=== PATIENT | female | born 1940 | race Caucasian/White ===

== ENCOUNTER 2020-01-28 14:32 | Outpatient (CLI) | payer MEDICARE, BC, SELFPAY ==
--- NOTE | ~2020-01-28 | MM_ITS ---
EXAMINATION: MM screening [facility] BI w sofia HISTORY: Screening mammogram TECHNIQUE: Craniocaudal and mediolateral oblique 3-D tomosynthesis images were obtained and synthetic 2-D images were generated. CAD analysis was submitted and interpreted. COMPARISON: 06/27/2018, 06/02/2017, 02/27/2016 bilateral digital screening mammogram examinations BREAST PARENCHYMAL COMPOSITION: There are scattered areas of fibroglandular density................. The triscaphe and FINDINGS: There is no evidence of suspicious mass, calcification, or architectural distortion to sugg est malignancy in either breast. There has been no suspicious interval change. IMPRESSION: 1. No mammographic evidence of malignancy. 2. Recommend routine screening mammography in one year. BI-RADS Category 1: Negative Reviewed, dictated and finalized at location A.
== END 2020-01-28 14:33 | disposition home or self-care (01) ==
PROVIDERS: PCP Family Medicine; Visit Provider Family Medicine
DX: Z12.31 Encounter for screening mammogram for malignant neoplasm of breast (principal)
CPT/HCPCS: 77063; 77067

== ENCOUNTER 2021-04-15 16:35 | Outpatient (CLI) | payer MEDICARE, BC, SELFPAY ==
--- NOTE | ~2021-04-15 | MM_ITS ---
EXAMINATION: MM screening [facility] BI w sofia HISTORY: Screening mammogram TECHNIQUE: Craniocaudal and mediolateral oblique 3-D tomosynthesis images were obtained and synthetic 2-D images were generated. CAD analysis was submitted and interpreted. COMPARISON: 01/28/2020, 06/27/2018, 06/02/2017 BREAST PARENCHYMAL COMPOSITION: There are scattered areas of fibroglandular density. FINDINGS: There is no evidence of suspicious mass, calcification, or architectural distortion to sugg est malignancy in either breast. There has been no suspicious interval change. IMPRESSION: 1. No mammographic evidence of malignancy. 2. Recommend routine screening mammography in one year. BI-RADS Category 1: Negative Reviewed, dictated and finalized at location A. LINE YARDER
== END 2021-04-15 16:36 | disposition home or self-care (01) ==
LOC: ANHIMG 16:37
PROVIDERS: PCP Family Medicine; Visit Provider Family Medicine
DX: Z12.31 Encounter for screening mammogram for malignant neoplasm of breast (principal)
CPT/HCPCS: 77063; 77067

== ENCOUNTER 2022-06-23 09:16 | Outpatient (CLI) | payer MEDICARE, BC, SELFPAY ==
--- NOTE | ~2022-06-23 | MM_ITS ---
EXAMINATION: MM screening [facility] BI w sofia HISTORY: Screening mammogram TECHNIQUE: Craniocaudal and mediolateral oblique 3-D tomosynthesis images were obtained and synthetic 2-D images were generated. CAD analysis was submitted and interpreted. COMPARISON: 04/15/2021, 01/28/2020, 06/27/2018 BREAST PARENCHYMAL COMPOSITION:There are scattered areas of fibroglandular density. FINDINGS: Vascular calcifications are noted bilaterally. No suspicious mass, calcification, or architectural di stortion are identified in either breast to suggest malignancy. There has been no suspicious interval change. IMPRESSION: No mammographic evidence of malignancy. Recommend routine screening mammography in one year. BI-RADS Category 2: Benign finding(s). Reviewed, dictated and finalized at location .
== END 2022-06-23 09:17 | disposition home or self-care (01) ==
PROVIDERS: PCP Family Medicine; Visit Provider Family Medicine
DX: Z12.31 Encounter for screening mammogram for malignant neoplasm of breast (principal)
CPT/HCPCS: 77063; 77067

== ENCOUNTER 2022-08-01 14:37 | Emergency (ER) | payer MEDICARE, BC, SELFPAY ==
--- NOTE | ~2022-08-01 | XR_ITS ---
EXAM: XR knee RT min 4V DATE: 08/01/2022 15:05 HISTORY: MEDIAL SIDE SWELLING. FELT POP 4 DAYS AGO. PAIN . COMPARISON: None available. FINDINGS: Decreased mineralization. No fracture or dislocation. No lytic or blastic lesion. Large [place] in the medial and distal right femur. Moderate tricompartmental osteoarthritis. No erosion or periosteal change. Atherosclerotic vessel calcifications. Small volume joint fluid. IMPRESSION: No acute osseous finding in the right knee. Reviewed, dictated and finalized at location K.
[2022-08-01 14:39] VITALS: BP 143/73; PULSE 95; RESP 14; TEMP 36.7; O2SAT 96
[2022-08-01] MEDS: traMADol HCL (*CRX) 50 MG TABLET PO (15:19)
--- NOTE | 2022-08-01 16:33 | ED.LOWEXIN ---
HPI - Extremity Injury (Lower) General Chief Complaint: Extremity Injury, Lower Stated Complaint: right knee pain Time Seen by Provider: 08/01/22 14:52 History of Present Illness HPI Narrative: Patient is an 82-year-old female who presents ER with right knee pain. Over the night she was standing her leg when she had a pop and sudden onset pain. She had decreased range of motion for the last 2 days but is improved today. She does have pain with bearing weight. She is applied a pressure wrap that does not help much because it continues to slide down her knee. No fevers or chills or sweats. No redness or swelling. She has mild radiation of pain into her tellez. Related Data Home Medications Medication Instructions Recorded Confirmed aspirin 81 mg tablet,delayed 81 mg PO DAILY 03/21/19 07/05/22 release (Adult Low Dose Aspirin) atorvastatin 40 mg tablet 40 mg PO DAILY 03/21/19 07/05/22 cholecalciferol (vitamin D3) 10 400 unit PO DAILY 03/21/19 07/05/22 mcg (400 unit) capsule lisinopril 10 mg tablet 10 mg PO DAILY 03/21/19 07/05/22 carboxymethylcellulose sodium 0.5 2 drop ophthalmic (eye) BID 05/22/19 07/05/22 % eye drops (Refresh Tears) cyclosporine 0.05 % eye drops in a 1 drop ophthalmic (eye) Q12H 05/22/19 07/05/22 dropperette (Restasis) amlodipine 2.5 mg tablet 2.5 mg PO DAILY 07/05/22 07/05/22 Allergies Allergy/AdvReac Type Severity Reaction Status Date / Time ceftriaxone Allergy Unknown Unknown Verified 07/05/22 11:09 Cephalosporins Allergy Unknown Unknown Verified 07/05/22 11:09 Review of Systems Musculoskeletal: Musculoskeletal: Reports arthralgias and Denies joint swelling Neurologic: Denies focal weakness and Denies numbness PMFSH Past Medical History Medical History (Updated 08/01/22 @ 16:37 by Cesar Stern MD) Arthritis Carotid atherosclerosis Essential (primary) hypertension Heart murmur Hypercholesteremia Vitamin D deficiency Surgical History Surgical History H/O adenoidectomy H/O tubal ligation History of arthroplasty of knee History of bladder suspension procedure History of carpal tunnel release History of knee replacement Hx of joint replacement S/P meniscectomy Status post trigger finger release Family History Family History Mother Family history of cardiovascular disease, Onset Age: 73 Family history of malignant neoplasm Family history of arthritis Father Family history of cardiovascular disease, Onset Age: 80 Grandparent Family history of cardiovascular disease, Onset Age: 88 Family history of arthritis, Onset Age: 73 Family history of malignant neoplasm, Onset Age: 62 Sibling Family history of cardiovascular disease Social History Social History Smoking status: Former smoker Tobacco type: cigarettes Second hand tobacco smoke exposure: No Smoking end date: 04/10/99 Alcohol intake: never Substance use: never Substance use type: does not use Lack of Transportation: No Lack of Food: Never True Current Housing: I Have Housing Concerned About Future Housing: No Difficulty Paying Gas/Electric Bills: No Difficulty Paying for Meds: No Currently Unemployed: No Difficulty w/ Childcare or Family Care: No Living arrangements: alone Occupation/Education: occupation Gender identity (if verbalized by the patient): Female Sexual Orientation (if Verbalized by the Patient): Straight or Heterosexual Spiritual care concerns: No Exam Narrative: GENERAL: Well-appearing, well-nourished, and in no acute distress. HEAD: Normocephalic, atraumatic. EYES: PERRL and EOMI. ENT: Mucous membranes moist. CHEST: Clear to auscultation. No respiratory distress. HEART: Regular rate and rhythm. Normal peripheral pulses. EXTREMITIES: Normal range of juju
== END 2022-08-01 16:50 | disposition home or self-care (01) ==
PROVIDERS: Emergency Provider Emergency Medicine; PCP Family Medicine; Referring Provider Orthopaedic Surgery
DX: M25.561 Pain in right knee (principal); M19.90 Unspecified osteoarthritis, unspecified site; I10 Essential (primary) hypertension
CPT/HCPCS: 73564; 99283; A9270

== ENCOUNTER 2022-09-30 10:20 | Outpatient (CLI) | payer MEDICARE, BC, SELFPAY ==
--- NOTE | 2022-09-30 10:45 | ECG_ITS ---
Measurements Intervals [place] Rate: 61 P: 77 MA: 153 QRS: 30 QRSD: 90 T: 23 QT: 443 QTc: 449 Interpretive Statements SINUS RHYTHM POSSIBLE LEFT ATRIAL ENLARGEMENT [-0.1mV P WAVE IN V1/V2] BORDERLINE ECG NO PREVIOUS ECG AVAILABLE FOR COMPARISON Electronically Signed On 09-30-2022 16:13:08 CDT by Judson Ramos M.D.
[2022-09-30 10:53] LABS: Hematocrit 41.9 % (37.0-47.0); Hemoglobin 13.2 g/dL (12.0-15.0)
[2022-09-30 11:05] LABS: Urine Cotinine NEGATIVE
[2022-09-30 11:07] LABS: Albumin Level 4.5 g/dL (3.5-5.1); Estimated Glomerular Filt Rate > 60; Glucose 83 mg/dL (65-110)
== END 2022-09-30 10:21 | disposition home or self-care (01) ==
PROVIDERS: PCP Family Medicine; Visit Provider Orthopaedic Surgery
DX: M17.11 Unilateral primary osteoarthritis, right knee (principal); E78.00 Pure hypercholesterolemia, unspecified; E78.5 Hyperlipidemia, unspecified; I10 Essential (primary) hypertension; I65.29 Occlusion and stenosis of unspecified carotid artery; R01.1 Cardiac murmur, unspecified; Z79.899 Other long term (current) drug therapy
CPT/HCPCS: 80307; 82040; 82565; 82947; 85014; 85018; 93005

== ENCOUNTER 2022-11-09 13:36 | Outpatient (CLI) | payer MEDICARE, BC, SELFPAY ==
[2022-11-09 15:06] LABS: Basophils Percent Auto 0.3 % (0.2-1.2); Eosinophils Percent Auto 0.5 % (0-4.4); Hematocrit 40.9 % (37.0-47.0); Hemoglobin 13.2 g/dL (12.0-15.0); Immature Granulocyte Absolute 0.01 K/mm3 (0.00-0.031); Immature Granulocyte Percent A 0.2 % (0-0.5); Lymphocytes Absolute Auto 1.29 K/mm3 (0.9-3.2); Lymphocytes Percent Auto 20.5 % (18.3-44.2); Mean Corpuscular HGB Conc 32.3 g/dl (32-36); Mean Corpuscular Hemoglobin 31.6 pg (26-34); Mean Corpuscular Volume 97.8 fl (80-100); Mean Platelet Volume 9.7 fl (7.4-10.4); Monocytes Absolute Auto 0.6 K/mm3 (0.1-0.6); Monocytes Percent Auto 8.7 % (2.6-8.5); Neutrophils Absolute Auto 4.4 K/mm3 (1.3-6.7); Neutrophils Percent Auto 69.8 % (45.5-73.1); Platelet Count Result 162 k/mm3 (150-375); Red Blood Count 4.18 M/mm3 (4.2-5.4); White Blood Count 6.3 K/mm3 (4.5-10.0)
[2022-11-09 15:22] LABS: Albumin Level 4.2 g/dL (3.5-5.1); Estimated Glomerular Filt Rate > 60; Glucose 93 mg/dL (65-110)
[2022-11-09 16:00] LABS: Urine Cotinine NEGATIVE
[2022-11-09 16:23] LABS: Hemoglobin A1C 5.5 % (<5.7)
== END 2022-11-09 13:37 | disposition home or self-care (01) ==
LOC: ANHSURGERY 13:42
PROVIDERS: PCP Family Medicine; Visit Provider Orthopaedic Surgery
DX: Z01.818 Encounter for other preprocedural examination (principal); M17.11 Unilateral primary osteoarthritis, right knee
CPT/HCPCS: 80307; 82040; 82565; 82947; 83036; 85025; 87081

== ENCOUNTER 2022-12-07 15:05 | Observation (INO) | payer MEDICARE, BC, SELFPAY ==
--- NOTE | 2022-11-09 13:30 | PC.NURSE ---
PRE-OP INSTRUCTIONS, PLEASE READ CAREFULLY Report to the Outpatient Waiting Room, entrance under the green pavilion located off [facility], at time _0830_ on date _12/06/22_. Planned Procedure Time: _1030_. PACK A SMALL OVERNIGHT BAG AND LEAVE IN THE CAR ALONG WITH YOUR WALKER Time changes happen often and if your time is changed the preop area will call you the afternoon before. - You and your visitor will be asked to self-screen and do not enter if you have any COVID symptoms. - A mask is optional within the hospital at this time. -VISITING HOURS 8AM-8PM Patients may have clear liquids (water, carbonated beverages, clear teas, apple juice) until 3 hours prior to surgery (0730 AM) with a maximum of 20 ounces. - No food from midnight until time of surgery Take the following medications with a SIP of water the morning of surgery: _AMLODIPINE, & TYLENOL IF NEEDED_ DO NOT STOP ANY OF YOUR OTHER PRESCRIPTION MEDICATIONS PRIOR TO SURGERY ?EXCEPT THE FOLLOWING Medications to discontinue per DR. OCAMPO - _MELOXICAM, IBUPROFEN 7 DAYS PRIOR TO SURGERY, Date to take last dose 11/28/22_ Please no make-up, nail [place], hairspray, perfume, deodorant, or body powder the day of surgery. No jewelry (including any body piercings) or valuables the day of surgery, leave them at home. Please take a shower or bath the night before, or the morning of, surgery with an antibacterial soap. Wear comfortable, loose fitting clothing. - Jewelry must be removed prior to entering the operating room. Rings and piercings that are not removed may be cut off. - The hospital will not accept responsibility for valuables. - Please leave all valuables, including medications, at home the day of surgery. If you are going home after surgery, a licensed pile driver must drive you home. - NO public transportation without another adult if you receive anesthesia. - We recommend that an adult stay with you for 24 hours following discharge. - We also recommend that you do not drive, make important decision, drink alcoholic beverages, or take any drugs that were not prescribed by your health care provider for at least 24 hours after your discharge time. Follow any additional instructions given to you from your surgeon. If you or anyone in your household have experienced Covid symptoms in the past week, please notify your surgeon or the nurse liaison at the phone number below for possible testing. Instructions given to _PATIENT_and asked if any additional questions and then verbalized understanding. Patient advised to call surgeon office or pre surgery nurse liaison [phone] if any additional questions.
[2022-11-09 14:07] VITALS: BP 146/66; PULSE 70; RESP 18; TEMP 36.7; O2SAT 99; BMI 25.7
[2022-12-06] VITALS (11 sets, daily range): BP systolic 123–155; BP diastolic 55–75; PULSE 65–91; RESP 14–21; TEMP 35.9–36.6; O2SAT 95–100; BMI 24.9
--- NOTE | 2022-12-06 07:13 | WPDHPUPDATE1 ---
History and Physical Update Update Date/Time: 12/06/22 07:13 History and Physical has been reviewed, including an updated exam of the patient. There are NO changes in the patient's condition. Risks, benefits, and alternatives have been discussed and questions answered. Patient agrees to proceed with procedure.
[2022-12-06] MEDS: LACTATED RINGERS 1,000 ML 30 ML IV CONT (12:15)
[2022-12-06] MEDS: ACETAMINOPHEN 500 MG TABLET 1000 MG PO ×2 (12:25→18:45)
--- NOTE | 2022-12-06 13:04 | WPDANESEPPF ---
Anes - Initial Pre Proc Eval Procedure: Operation Date: 12/06/22 13:30 Proposed Procedures p Right Total Knee Arthroplasty - Chris Rueda MD Date/Time: 12/06/22 13:04 Surgeon: Chris Rueda MD Pre Op Diagnosis: Prim O A Rt Knee Patient Data Age: 82 Gender: F Height: 1.63 m Weight: 65.9 kg Last Vital Signs Temp 36.7 C 11/09/22 14:07 Pulse 70 11/09/22 14:07 Resp 18 11/09/22 14:07 BP 146/66 H 11/09/22 14:07 Pulse Ox 99 11/09/22 14:07 O2 Del Method Room Air 11/09/22 14:07 Allergies Allergy/AdvReac Type Severity Reaction Status Date / Time ceftriaxone Allergy Unknown HIVES/ITCHING/FLUSHED Verified 12/06/22 12:23 FEELING Cephalosporins Allergy Unknown HIVES/ITCHING/FLUSHED Verified 12/06/22 12:23 FEELING Home Medications Medication Instructions Recorded Confirmed Type atorvastatin 40 mg tablet 40 mg PO DAILY 03/21/19 11/25/22 History lisinopril 10 mg tablet 10 mg PO DAILY 03/21/19 11/25/22 History amlodipine 2.5 mg tablet 2.5 mg PO DAILY 07/05/22 12/06/22 History meloxicam 15 mg tablet 15 mg PO DAILY #90 tabs 08/29/22 12/06/22 Rx acetaminophen 500 mg tablet 1,000 mg PO QID PRN Pain 11/09/22 11/25/22 History ibuprofen 400 mg tablet 400 mg PO Q6H PRN Pain 11/09/22 12/06/22 History Laboratory Tests 12/06/22 12:18 Blood Type A Positive Antibody Screen Pending Patient hx anesthesia problems: none Family hx anesthesia problems: none Results Review: All pre-operative results and documents have been reviewed as part of the pre-operative evaluation. [facility] Past Medical History Medical History Arthritis Carotid atherosclerosis Essential (primary) hypertension Heart murmur History of bruising easily History of diverticulosis Hypercholesteremia Hyperlipidemia Vitamin D deficiency Surgical History Surgical History H/O adenoidectomy (~195) H/O tubal ligation (~1974) History of arthroplasty of knee History of bilateral cataract extraction (~2017) History of bladder suspension procedure (~2003) History of carpal tunnel release Left 2007 Right 2010 History of dental surgery History of knee replacement (~2017) Left History of partial knee replacement (~2015) History of removal of retained hardware (~2016) Implant removal due to infection Hx of joint replacement (~2011) Right Great Toe S/P meniscectomy (~2015) Medial Meniscectomy Status post trigger finger release (~2015) Left Middle Family History Family History Mother Family history of cardiovascular disease, Onset Age: 73 Family history of malignant neoplasm Family history of arthritis Father Family history of cardiovascular disease, Onset Age: 80 Grandparent Family history of cardiovascular disease, Onset Age: 88 Family history of arthritis, Onset Age: 73 Family history of malignant neoplasm, Onset Age: 62 Sibling Family history of cardiovascular disease Social History Social History Years smoked: 15 Smoking status: Former smoker Tobacco type: cigarettes Second hand tobacco smoke exposure: No Smoking end date: 04/10/99 Additional smoking assessment comments: STATES SMOKED 1-2PKS/DAY-PENDING THE DAY - DENIES ALL FORMS OF TOBACCO USE Alcohol intake: never Substance use: never Substance use type: does not use Lack of Transportation: No Lack of Food: Never True Current Housing: I Have Housing Concerned About Future Housing: No Difficulty Paying Gas/Electric Bills: No Difficulty Paying for Meds: No Currently Unemployed: No Education: High School Diploma/GED Difficulty w/ Childcare or Family Care: No Living arrangements: alone Occupation/Education: occupation [employer]
--- NOTE | 2022-12-06 13:08 | WPDANESPNB ---
Anes - Peripheral Nerve Block Date/Time: 12/06/22 13:08 I have discussed with the patient/family/POA the placement of a peripheral nerve block for post-operative pain management, including associated risks, benefits, complications, and side effects. Alternative methods of post-operative analgesia were detailed. Questions were solicited and answers provided to the satisfaction of the patient/family/POA. Time-Out: A pre-procedural Time-Out was completed immediately before starting the procedure and confirmed: Patient Identification, Site, Procedure, Patient Position and the Availability of Requisite Equipment. Clinical Indications: Acute post-operative pain management requested by the operative surgeon. Nerve Block Insertion Note Anes-nerve block: adductor canal right Patient position: supine Skin prep: chlorhexidine Needle: 22 gauge, stimulating, insulated echogenic needle. Needle length: 80 mm Technique: ultrasound Injectate: bupivacaine 0.5% with epi 5 mcg/ml (30cc - no epi) Observations: tolerated well Complications: none Procedure start time:: 1403 Procedure end time:: 1407
--- NOTE | 2022-12-06 13:20 | SUR.PREOP ---
1320- Notified patient and daughter Silvana that procedure start time is delayed. Patient and daughter verbalized understanding of delay to start time and denying needs at this time.
[2022-12-06] MEDS: TRANEXAMIC ACID 1,000MG/ISO100 1,000 MG/100 ML BAG 200 MG IVPB (14:02)
[2022-12-06] MEDS: CLINDAMYCIN 900 MG/D5W 50 ML 900 MG/50 ML PIGGYBACK 50 MG IVPB (14:47)
--- NOTE | 2022-12-06 17:14 | P.OP_ITS ---
Procedure Note - Detailed Date of Procedure 12/06/22 Pre-op Diagnosis Prim O A Rt Knee Post-op Diagnosis Same Procedure Performed Total knee arthroplasty, right. Surgeon Chris Rueda MD Anesthesia General and Regional (subsartorial block) Findings Good bone quality. No releases needed. PCL intact. Description of Procedure The patient was brought to the operating room. A general anesthetic was administered. The leg was prepped and draped in the usual sterile fashion. The limb was elevated and the tourniquet inflated to 300 mmHg during initial exposure, and cementation. A longitudinal incision was created along the medial border of the patella and patellar tendon, and a trivector approach to the knee was performed. No medial release was taken. The knee was then flexed. The osteophytes were carefully removed. The intramedullary guide was placed in the femoral canal. The distal femoral resection was then taken with the oscillating saw. The collateral ligaments were carefully protected. The tibia was carefully exposed. The jig was applied, and the proximal tibia was resected according to preoperative plan. The knee was balanced in extension. Appropriate releases were taken where needed. The anterior cruciate ligament and meniscal remnants were removed. The posterior cruciate ligament was preserved. The patella was measured. Patellar resection was carried out with the oscillating saw. The lug holes drilled. The femur was sized and rotation assessed using a combination of gap balancing, posterior referencing, and the AP axis. The 4 in 1 cutting block was used to finish the femoral cuts after equal gaps were assured. The osteophytes were carefully removed from the back of the knee. The knee was copiously irrigated with antibiotic solution periodically throughout the procedure. The meniscal remnants were removed. The spacer block was used to confirm equal flexion and extension gaps. No further releases were needed. The tibia was sized and broached. The bony surfaces were prepared for cementing with pulsatile lavage. The real tibial and femoral and patellar components were cemented into position. Excess cement was carefully removed. Patellar tracking was carefully assessed. No additional releases were required. Dilute sterile Betadine soak performed for three minutes. Copious irrigation then performed. The wound was closed with #1 Vicryl suture, #2, 2-0, and 3-0 barbed suture, followed by Steri-Strips. A sterile bulky dressing was applied. Meticulous hemostasis was maintained throughout the procedure. The bipolar cautery device was used. The pain relieving mixture was injected into the periarticular tissues during the procedure. There were no complications. The patient was extubated and brought to the recovery room in stable condition after the application of sterile dressing with Jamil bandage. Implants [place] Triathlon knee system, low profile cemented tibia size 4, cemented cruciate retaining femoral component size 4 ,and an 9 mm cruciate retaining polyethylene insert. 32mm asymmetric all polyethylene patella component. Estimated Blood Loss 50 Drains No Pathology None sent Complications No immediate complications Condition Stable Disposition PACU [facility] Billing Surgery - Charge Forward: Surgery Billing
--- NOTE | 2022-12-06 18:30 | ADMGEN ---
This patient, Linsey Whitney, was admitted to [facility] Surg Room 317-01. Patient/family oriented to hospital policies and general routines including ID bracelet, bed and alarms, visiting hours, pain management, procedures, bathroom and other care routines, personal items, smoking policy, room service/diet, and visiting hours. Information on how to activate the Rapid Response Team has been discussed. Patient/Family are encouraged to report perceived risks to care and to ask questions if they do not understand what they are told or what they should do.
[2022-12-06] MEDS: SENNA/DOCUSATE SODIUM TABLET 2 TAB PO (18:45)
[2022-12-06] MEDS: ASPIRIN 81 MG ENTERIC TABLET PO (18:45)
--- NOTE | 2022-12-06 19:03 | PC.NURSE ---
This nurse has reviewed the charting of the orienting license pending nurse and agree with the findings
[2022-12-06] MEDS: FAMOTIDINE 20 MG TABLET PO (20:35)
--- NOTE | ~2022-12-07 | XR_ITS ---
EXAM: [id number]_CR DATE: 12/06/2022 17:15 HISTORY: RT TOTAL KNEE . COMPARISON: None available. FINDINGS/IMPRESSION: Expected postsurgical changes, status post right total knee arthroplasty, with n o radiographic evidence of procedure or hardware related complication. Reviewed, dictated and finalized at location K.
[2022-12-07 00:02] VITALS: BP 132/59; PULSE 61; RESP 18; TEMP 35.9; O2SAT 95
[2022-12-07] MEDS: ACETAMINOPHEN 500 MG TABLET 1000 MG PO ×4 (01:06→17:59)
[2022-12-07] MEDS: VANCOMYCIN 1,000 MG/NS 250 ML 1,000 MG/250 ML BAG 250 MG IVPB ×2 (03:12→15:12)
[2022-12-07 04:02] VITALS: BP 124/57; PULSE 67; RESP 18; TEMP 36.1; O2SAT 97
[2022-12-07 06:58] LABS: Basophils Percent Auto 0.2 % (0.2-1.2); Hematocrit 37.4 % (37.0-47.0); Hemoglobin 12.2 g/dL (12.0-15.0); Immature Granulocyte Absolute 0.04 K/mm3 (0.00-0.031); Immature Granulocyte Percent A 0.4 % (0-0.5); Immature Platelet Fraction Pct 3.4 % (0.9-11.2); Lymphocytes Absolute Auto 1.16 K/mm3 (0.9-3.2); Lymphocytes Percent Auto 12.6 % (18.3-44.2); Mean Corpuscular HGB Conc 32.6 g/dl (32-36); Mean Corpuscular Hemoglobin 31.7 pg (26-34); Mean Corpuscular Volume 97.1 fl (80-100); Mean Platelet Volume 10.4 fl (7.4-10.4); Monocytes Absolute Auto 0.7 K/mm3 (0.1-0.6); Monocytes Percent Auto 7.8 % (2.6-8.5); Neutrophils Absolute Auto 7.3 K/mm3 (1.3-6.7); Platelet Count Result 136 k/mm3 (150-375); Red Blood Count 3.85 M/mm3 (4.2-5.4); Red Cell Distribution Width 12.6 % (11.5-14.5); White Blood Count 9.2 K/mm3 (4.5-10.0)
[2022-12-07 07:10] LABS: Anion Gap 3 mmol/L (8-16); Blood Urea Nitrogen 17 mg/dL (7-17); Calcium 9.2 mg/dL (8.4-10.2); Carbon Dioxide 28 mmol/L (22-30); Chloride 107 mmol/L (98-107); Estimated CRCL calculation 46 ml/min; Estimated Glomerular Filt Rate > 60; Glucose 90 mg/dL (65-110); Potassium 4.3 mmol/L (3.4-5.0); Sodium 138 mmol/L (137-145)
[2022-12-07 07:56] VITALS: BP 119/60; PULSE 69; RESP 18; TEMP 36.2; O2SAT 98
[2022-12-07] MEDS: polyethylene glycoL 3350 17 GM POWD.PACK PO (08:10)
[2022-12-07] MEDS: ATORVASTATIN 40 MG TABLET PO (08:11)
[2022-12-07] MEDS: predniSONE 5 MG TABLET PO (08:11)
[2022-12-07] MEDS: ASPIRIN 81 MG ENTERIC TABLET PO ×2 (08:11→17:59)
[2022-12-07] MEDS: MELOXICAM 7.5 MG TABLET 15 MG PO (08:11)
[2022-12-07] MEDS: FAMOTIDINE 20 MG TABLET PO ×2 (08:11→20:01)
[2022-12-07] MEDS: amLODIPine BESYLATE 2.5 MG TABLET PO (08:11)
[2022-12-07] MEDS: SENNA/DOCUSATE SODIUM TABLET 2 TAB PO ×2 (08:11→17:59)
[2022-12-07] MEDS: lisinopriL 10 MG TABLET PO (08:11)
[2022-12-07] MEDS: traMADol HCL (*CRX) 50 MG TABLET PO ×2 (08:14→23:45)
--- NOTE | 2022-12-07 09:27 | PM.DS ---
DS: Admitting Diagnosis Discharge Date 12/07/22 Admitting Diagnosis OA knee Right DS: Discharge Diagnosis Discharge Diagnosis (1) Status post total right knee replacement: Code(s): Z96.651 - Presence of right artificial knee joint Status: Acute Assessment and Plan: Postop day 1: Right total knee arthroplasty. Patient tolerated procedure well. No complications. Pain manageable with pain medication. No numbness or tingling. We had a lengthy discussion regarding postoperative wound care, limitations, expectations, and exercises. Patient shows good understanding. She has had initial physical therapy and is tolerating it well. DVT prophylaxis: 81 mg baby aspirin b.i.d. for 14 days. Pain medication: Percocet. Meloxicam. Prednisone. Patient has followup appointment with Dr. Rueda in 3 weeks. DS: Summary Hospital Course Reason for hospitalization: Total knee arthroplasty Hospital Course: Patient tolerated procedure well. Has had initial PT/OT. No complications. Pain well managed. Status at Discharge Functional status at discharge: uses cane/walker Overall status at discharge: patient is progressing back to baseline Time Spent with Patient Time attestation: Total time spent providing and/or coordinating discharge services: Exam Narrative: Normal weight 82 y/o female. Resting comfortably in bed. No acute distress. A&O x3. Wearing compression socks bilaterally. Dressing intact with no drainage. Moderate swelling. Small area of ecchymosis. No erythema. No hematoma. Good early range of motion. Calf nontender. Neurologic status intact. No varicosities. Distal pulses palpable. DS: Data Data Completed and Pending Labs on day of discharge: Labs from last 24 hours 12/07/22 12/06/22 06:38 12:18 WBC 9.2 RBC 3.85 L Hgb 12.2 Hct 37.4 MCV 97.1 MCH 31.7 MCHC 32.6 RDW 12.6 Plt Count 136 L MPV 10.4 Immature Gran % (Auto) 0.4 Neut % (Auto) 79.0 H Lymph % (Auto) 12.6 L [place] % (Auto) 7.8 Eos % (Auto) 0.0 Baso % (Auto) 0.2 Lymph # (Auto) 1.16 [place] # (Auto) 0.7 H Eos # (Auto) 0.0 Baso # (Auto) 0.0 Abs Immat Gran (auto) 0.04 H Absolute Neuts (auto) 7.3 H Absolute Nucleated RBC 0.0 Nucleated RBC % 0.0 % Immature Plt Fraction 3.4 Sodium 138 Potassium 4.3 Chloride 107 Carbon Dioxide 28 Anion Gap 3 L BUN 17 Creatinine 0.70 Estim Creat Clear Calc 46 Estimated GFR > 60 Glucose 90 Calcium 9.2 Blood Type A Positive Antibody Screen Negative Discharge Plan Discharge Patient Disposition: Home, Self-Care Discharge Instructions: See green instruction sheets Stand Alone Forms: General Discharge Instructions Follow-up/Referrals: Fabby Lee PA [Physician Priest] - Discharge Medications: New prednisone 5 mg tablet 5 mg PO DAILY 21 Days Qty: 21 0RF aspirin 81 mg tablet,delayed release (DR/EC) 81 mg PO BID 14 Days Qty: 28 0RF oxycodone-acetaminophen 5-325 mg tablet 1 - 2 tablet PO Q4-6H MDD 6 PRN (Reason: pain) Qty: 30 0RF meloxicam 15 mg tablet 15 mg PO DAILY Qty: 30 0RF Rx Instructions: Cut in half. Take 1/2 in morning and 1/2 at night. Take with food. Stop if stomach upset. Continued amlodipine 2.5 mg tablet 2.5 mg PO DAILY acetaminophen 500 mg Tablet 1,000 mg PO QID PRN (Reason: Pain) ibuprofen 400 mg Tablet 400 mg PO Q6H PRN (Reason: Pain) atorvastatin 40 mg tablet 40 mg PO DAILY lisinopril 10 mg tablet 10 mg PO DAILY meloxicam 15 mg tablet 15 mg PO DAILY Qty: 90 0RF
--- NOTE | 2022-12-07 10:20 | WPDANESPN ---
Anes - Prog Note Post-Op Date/Time: 12/07/22 10:20 Cardiovascular status: normal Respiratory status: normal Airway patency: baseline Mental status: baseline Post-Op hydration status: normal Vital Signs: Last Vital Signs Temp 36.2 C L 12/07/22 07:56 Pulse 69 12/07/22 07:56 Resp 18 12/07/22 07:56 BP 119/60 12/07/22 07:56 Pulse Ox 98 12/07/22 07:56 O2 Del Method Room Air 12/06/22 20:20 O2 Flow Rate 8 12/06/22 17:09 Pain Score (VAS): 0 I/O: Intake & Output 12/06/22 12/07/22 12/07/22 23:59 07:59 15:59 Intake Total 1000 360 Balance 1000 360 Laboratory Tests 12/07/22 06:38 12/07/22 06:38 12/06/22 12/07/22 12:18 06:38 WBC 9.2 RBC 3.85 L Hgb 12.2 Hct 37.4 MCV 97.1 MCH 31.7 MCHC 32.6 RDW 12.6 Plt Count 136 L MPV 10.4 Immature Gran % (Auto) 0.4 Neut % (Auto) 79.0 H Lymph % (Auto) 12.6 L [place] % (Auto) 7.8 Eos % (Auto) 0.0 Baso % (Auto) 0.2 Lymph # (Auto) 1.16 [place] # (Auto) 0.7 H Eos # (Auto) 0.0 Baso # (Auto) 0.0 Abs Immat Gran (auto) 0.04 H Absolute Neuts (auto) 7.3 H Absolute Nucleated RBC 0.0 Nucleated RBC % 0.0 % Immature Plt Fraction 3.4 Sodium 138 Potassium 4.3 Chloride 107 Carbon Dioxide 28 Anion Gap 3 L BUN 17 Creatinine 0.70 Estim Creat Clear Calc 46 Estimated GFR > 60 Glucose 90 Calcium 9.2 Blood Type A Positive Antibody Screen Negative Post-procedural complaints: none Patient Feedback: Patient satisfied with anesthetic care.
[2022-12-07 12:15] VITALS: BP 123/72; PULSE 71; RESP 17; TEMP 36.3; O2SAT 100
--- NOTE | 2022-12-07 15:20 | PM.PNORT ---
Progress Note: A&P Assessment and Plan (1) Status post total right knee replacement: Code(s): Z96.651 - Presence of right artificial knee joint Status: Acute Assessment and Plan: Spoke with Yao from PT. Patient is very impulsive and has poor quad function. Physical therapy would like to see the patient one more time tomorrow for the patient's safety. That is reasonable. Plan on discharge tomorrow. Subjective Subjective Date/Time Seen: 12/07/22 15:20 Interval history: Patient states she has no pain. She has been struggling with formal physical therapy. She is very impulsive and has poor quad function. Review of Systems Review of Systems: All systems reviewed & are unremarkable except as noted in HPI and below Exam Narrative: Normal weight 82 y/o female. Resting comfortably in bed. No acute distress. A&O x3. Wearing compression socks bilaterally. Dressing intact with no drainage.? Moderate swelling.? Small area of ecchymosis. No erythema. No hematoma. Good early range of motion. Calf nontender.? Neurologic status intact. No varicosities. Distal pulses palpable. Objective Data Vital Signs Vital Signs: Vital Signs - 24 hr 12/06/22 17:09 12/06/22 17:25 12/06/22 17:40 Temperature 97.8 F Pulse Rate 91 76 72 Respiratory Rate 21 H 16 16 Blood Pressure 155/69 H 154/75 H 134/61 Pulse Oximetry 100 98 98 Oxygen Delivery Simple Face Mask Room Air Room Air Oxygen Flow Rate 8 12/06/22 17:56 12/06/22 18:10 12/06/22 18:30 Temperature 97.5 F L Pulse Rate 73 76 75 Respiratory Rate 16 18 14 Blood Pressure 142/74 H 139/71 139/70 Pulse Oximetry 97 98 96 Oxygen Delivery Room Air Room Air Oxygen Flow Rate 12/06/22 18:45 12/06/22 20:20 12/06/22 19:02 Temperature 97.3 F L 97.7 F Pulse Rate 68 68 72 Respiratory Rate 14 14 16 Blood Pressure 148/70 H 123/55 L Pulse Oximetry 97 97 95 Oxygen Delivery Room Air Oxygen Flow Rate 12/06/22 20:02 12/07/22 00:02 12/07/22 04:02 Temperature 96.7 F L 96.7 F L 96.9 F L Pulse Rate 73 61 67 Respiratory Rate 18 18 18 Blood Pressure 126/62 132/59 L 124/57 L Pulse Oximetry 95 95 97 Oxygen Delivery Oxygen Flow Rate 12/07/22 07:56 12/07/22 10:20 12/07/22 12:15 Temperature 97.1 F L 97.3 F L Pulse Rate 69 71 Respiratory Rate 18 17 Blood Pressure 119/60 123/72 Pulse Oximetry 98 100 Oxygen Delivery Room Air Oxygen Flow Rate Intake/Output Intake/Output: Intake & Output 12/04/22 12/05/22 12/06/22 12/07/22 23:59 23:59 23:59 23:59 Intake Total 1050 850 Balance 1050 850 Meds/Results Medications: Active Medications Generic Name Dose Route Start Last Admin Trade Name Freq PRN Reason Stop Dose Admin Acetaminophen 1,000 mg 12/06/22 19:00 12/07/22 12:01 Acetaminophen 500 Mg Tablet PO 1,000 mg Q6H RONNI Administration Amlodipine Besylate 2.5 mg 12/07/22 09:00 12/07/22 08:11 Amlodipine Besylate 2.5 Mg Tablet PO 2.5 mg DAILY RONNI Administration Aspirin 81 mg 12/06/22 18:17 12/07/22 08:11 Aspirin 81 Mg Enteric Tablet PO 81 mg BID RONNI Administration Atorvastatin Calcium 40 mg 12/07/22 09:00 12/07/22 08:11 Atorvastatin 40 Mg Tablet PO 40 mg DAILY RONNI Administration Cyclobenzaprine HCl 10 mg 12/06/22 18:17 Cyclobenzaprine Hcl 10 Mg Tablet PO Q8H PRN Spasms Diphenhydramine HCl 25 mg 12/06/22 18:17 Diphenhydramine Hcl Inj 50 Mg/Ml Vial IV PUSH Q6H PRN Itching Famotidine 20 mg 12/06/22 21:00 12/07/22 08:11 Famotidine 20 Mg Tablet PO 20 mg Q12HR RONNI Administration Vancomycin HCl 1,000 mg in 250 mls @ 250 mls/hr 12/07/22 03:00 12/07/22 15:12 Vancomycin 1,000 Mg/Ns 250 Ml IVPB 12/07/22 15:59 250 mls/hr Q12H RONNI Administration Lisinopril 10 mg 12/07/22 09:00 12/07/22 08:11 Lisinopril 10 Mg Tablet PO 10 mg DAILY RONNI Administration Meloxicam 15 mg 08/30/23 09:00 12/07/22 08:11 Meloxicam 7.5 Mg Tablet
[2022-12-07 15:48] VITALS: BP 110/58; PULSE 70; RESP 17; TEMP 36.8; O2SAT 95
[2022-12-07 20:01] VITALS: BP 130/72; PULSE 78; RESP 18; TEMP 36.7; O2SAT 96
[2022-12-07] MEDS: CYCLOBENZAPRINE HCL 10 MG TABLET PO (20:03)
[2022-12-08] MEDS: ONDANSETRON INJ 4 MG/2 ML VIAL IV PUSH (00:36)
[2022-12-08] MEDS: oxyCODONE HCL (*CRX) 5 MG TAB IR 10 MG PO (00:37)
[2022-12-08 04:43] VITALS: BP 144/74; PULSE 80; RESP 16; TEMP 36.6; O2SAT 93
[2022-12-08] MEDS: oxyCODONE HCL (*CRX) 5 MG TAB IR PO (06:02)
[2022-12-08] MEDS: FAMOTIDINE 20 MG TABLET PO (08:48)
[2022-12-08] MEDS: ACETAMINOPHEN 500 MG TABLET 1000 MG PO (08:48)
[2022-12-08] MEDS: SENNA/DOCUSATE SODIUM TABLET 2 TAB PO (08:48)
[2022-12-08] MEDS: predniSONE 5 MG TABLET PO (08:48)
[2022-12-08] MEDS: MELOXICAM 7.5 MG TABLET 15 MG PO (08:48)
[2022-12-08] MEDS: amLODIPine BESYLATE 2.5 MG TABLET PO (08:48)
[2022-12-08] MEDS: lisinopriL 10 MG TABLET PO (08:48)
[2022-12-08] MEDS: ASPIRIN 81 MG ENTERIC TABLET PO (08:49)
[2022-12-08] MEDS: polyethylene glycoL 3350 17 GM POWD.PACK PO (08:49)
[2022-12-08] MEDS: ATORVASTATIN 40 MG TABLET PO (08:54)
--- NOTE | 2022-12-08 10:55 | P.DS_ITS ---
DS: Admitting Diagnosis Discharge Date 12/08/22 Admitting Diagnosis Knee arthritis. DS: Discharge Diagnosis Discharge Diagnosis (1) Status post total right knee replacement: Code(s): Z96.651 - Presence of right artificial knee joint Status: Acute Assessment and Plan: Postop day 2: Left total Hip arthroplasty. Patient tolerated procedure well. No complications. Patient had poor quad function yesterday with formal physical therapy and was very impulsive. It was decided that patient was not safe to return home yesterday. Her block has warn off and she is doing much better with formal physical therapy. Okay for discharge at this time. Pain manageable with pain medication. No numbness or tingling. We had a lengthy discussion regarding postoperative wound care, limitations, expectations, and exercises. Patient shows good understanding. Patient has followup appointment with Dr. Rueda in 3 weeks. DS: Summary Hospital Course Hospital Course: Patient had total knee arthroplasty. No immediate complications. Found to be unsafe to return home yesterday with formal physical therapy. She is doing much better today and is okay for discharge. Time Spent with Patient Time attestation: Total time spent providing and/or coordinating discharge services: Exam Narrative: Normal weight 82 y/o female. Resting comfortably in bed. No acute distress. A&O x3. Wearing compression socks bilaterally. Dressing intact with no drainage.? Moderate swelling.? Small area of ecchymosis. No erythema. No hematoma. Good early range of motion. Calf nontender.? Neurologic status intact. No varicosities. Distal pulses palpable. Discharge Plan Discharge Attending physician on discharge: Chris Rueda Discharging Clinician: Fabby Lee Anticipated Discharge Date/Time: 12/08/22 10:54 Patient Disposition: Home, Self-Care Activity: may shower Diet: as tolerated Wound Care Instructions: follow printed instructions Discharge Instructions: See green instruction sheets Stand Alone Forms: General Discharge Instructions Follow-up/Referrals: Fabby Lee PA [Physician [employer]] - Discharge Medications: New prednisone 5 mg tablet 5 mg PO DAILY 21 Days Qty: 21 0RF aspirin 81 mg tablet,delayed release (DR/EC) 81 mg PO BID 14 Days Qty: 28 0RF oxycodone-acetaminophen 5-325 mg tablet 1 - 2 tablet PO Q4-6H MDD 6 PRN (Reason: pain) Qty: 30 0RF meloxicam 15 mg tablet 15 mg PO DAILY Qty: 30 0RF Rx Instructions: Cut in half. Take 1/2 in morning and 1/2 at night. Take with food. Stop if stomach upset. Continued amlodipine 2.5 mg tablet 2.5 mg PO DAILY acetaminophen 500 mg Tablet 1,000 mg PO QID PRN (Reason: Pain) ibuprofen 400 mg Tablet 400 mg PO Q6H PRN (Reason: Pain) atorvastatin 40 mg tablet 40 mg PO DAILY lisinopril 10 mg tablet 10 mg PO DAILY meloxicam 15 mg tablet 15 mg PO DAILY Qty: 90 0RF Date of admission: 12/07/22 15:05 Primary Care Provider: Juan A Ralph Admitting Provider: Chris Rueda Attending physician on admission: Chris Rueda Condition: Stable
== END 2022-12-08 12:35 | disposition home or self-care (01) ==
LOC: ANHSURGERY 15:18 → ANH3MEDSUR 15:18
PROVIDERS: Physician Assistant Surgical; Admitting Provider Orthopaedic Surgery; PCP Family Medicine; Visit Provider Orthopaedic Surgery
PROC: (CPT 27447; principal; 2022-12-06 13:30)
DX: M17.11 Unilateral primary osteoarthritis, right knee (principal); I10 Essential (primary) hypertension; E78.5 Hyperlipidemia, unspecified; G89.18 Other acute postprocedural pain; E55.9 Vitamin D deficiency, unspecified; Z87.891 Personal history of nicotine dependence; Z79.1 Long term (current) use of non-steroidal anti-inflammatories (NSAID); Z79.899 Other long term (current) drug therapy; Z82.49 Family history of ischemic heart disease and other diseases of the circulatory system; Z82.61 Family history of arthritis
CPT/HCPCS: 27447; 64447; 36415; 73560; 80048; 85025; 85055; 86850; 86900; 86901; 97110; 97116; 97161; 97165; 97530; 97535; A9270; C1713; C1776; G0378; J0171; J1100; J1885; J2270; J2405; J2704; J2795; J3010; J3370; J7120; J7512

== ENCOUNTER 2023-03-09 12:48 | Outpatient (CLI) | payer MEDICARE, BC, SELFPAY ==
--- NOTE | ~2023-03-09 | US_ITS ---
EXAMINATION:US venous doppler LE RT INDICATION:Localized edema. Status post right knee surgery. TECHNIQUE: Multiple grayscale, color flow and Doppler images of the right lower extremity deep venous systems were obtained and reviewed. COMPARISON:No prior studies for comparison. FINDINGS: The common femoral, superficial femoral and popliteal veins demonstrate normal respiratory variation, augmentation and compressibility. Color flow is also seen within the posterior tibial, pe roneal, greater saphenous and profunda veins. IMPRESSION: 1: No lower extremity deep venous thrombosis. Reviewed, dictated and finalized at location L. BEATER
== END 2023-03-09 12:49 | disposition home or self-care (01) ==
PROVIDERS: PCP Family Medicine; Visit Provider Orthopaedic Surgery
DX: R60.0 Localized edema (principal)
CPT/HCPCS: 93971

== ENCOUNTER 2023-07-24 07:33 | Outpatient (CLI) | payer MEDICARE, BC, SELFPAY ==
--- NOTE | ~2023-07-24 | US_ITS ---
US abdomen limited INDICATION: Mid abdominal pain PROCEDURE: Realtime right upper abdominal ultrasound. COMPARISON: No prior studies for comparison. FINDINGS: The pancreas is normal without focal mass or pancreatic ductal dilation. Liver echotexture is normal without focal mass or intrahepatic biliary dilatation. There is normal directional flow i n the portal vein. The gallbladder is normal without stones, gallbladder wall thickening or pericholecystic fluid. Comm on bile duct measures 4.6 mm. No sonographic Pena's sign. IMPRESSION: 1: Normal limited abdominal ultrasound. Reviewed, dictated and finalized at location A.
== END 2023-07-24 07:34 ==
LOC: MICIMG 07:34
PROVIDERS: PCP Family Medicine; Visit Provider Family Medicine
DX: R10.10 Upper abdominal pain, unspecified (principal)
CPT/HCPCS: 76705

== ENCOUNTER 2023-07-31 08:31 | Outpatient (CLI) | payer MEDICARE, BC, SELFPAY ==
--- NOTE | ~2023-07-31 | XR_ITS ---
XR knee RT 3V 07/31/2023 09:07 Indication: Right knee arthroplasty. Procedure: 3 views right knee Comparison: Comparison to multiple prior studies sequentially, with oldest reviewed study dated 12/28. Findings: There is a right total knee arthroplasty. Prosthesis well seated. No underlying fracture or traumatic malalignment. No significant joint effusion. No foreign bodies. Impression: 1: No acute bone or joint abnormality. Stable alignment of right knee arthroplasty. Reviewed, dictated and finalized at location B. Impression: 1: No acute bone or joint abnormality. Stable alignment of right knee arthropla sty.
== END 2023-07-31 08:32 | disposition home or self-care (01) ==
PROVIDERS: PCP Family Medicine; Visit Provider Orthopaedic Surgery
DX: Z96.651 Presence of right artificial knee joint (principal)
CPT/HCPCS: 73562

== ENCOUNTER 2023-08-18 11:02 | Emergency (ER) | payer MEDICARE, BC, SELFPAY ==
[2023-08-18 11:13] VITALS: BP 131/77; PULSE 83; RESP 18; TEMP 36.6; O2SAT 97
--- NOTE | 2023-08-18 11:43 | ED.WOUNDLAC ---
HPI - Wound/Laceration General Chief Complaint: Wound/Laceration Stated Complaint: Left leg wound Time Seen by Provider: 08/18/23 11:28 Source: patient, RN notes reviewed and old records reviewed Mode of arrival: ambulatory Limitations: no limitations History of Present Illness HPI narrative: 83 year old female who presents to [facility] with complaints of wound to left lower anterior leg which occurred one week ago when she hit it with a bag of landscape rock. Patient reports that she has been cleansing wound with antibacterial soap twice daily but is concerned because she noted some redness around the wound and some yellowish drainage from wound. Patient reports no known fevers, chills or sweats. Patient has wound which measures center of 1.5cm and surounding area of redness to be total 3.5cm X 4.5cm with little discomfort voiced to area. Onset (ago): day(s) (8) Location: other (left lower anterior leg) Place: outdoors Treatments prior to arrival: other (cleansed with antibacterial soap and rinsed twice daily.telfa dressing) Related Data Home Medications Medication Instructions Recorded Confirmed acetaminophen 500 mg tablet 1,000 mg PO QID PRN Pain 11/09/22 07/31/23 Allergies Allergy/AdvReac Type Severity Reaction Status Date / Time ceftriaxone Allergy Unknown HIVES/ITCHING/FLUSHED Verified 08/18/23 11:16 FEELING Cephalosporins Allergy Unknown HIVES/ITCHING/FLUSHED Verified 08/18/23 11:16 FEELING Review of Systems Review of Systems: CONSTITUTIONAL: Denies fever, chills, or sweats. CARDIOVASCULAR: Denies chest pain, palpitations, or edema. RESPIRATORY: Denies cough or dyspne GASTROINTESTINAL: Denies abdominal pain, nausea, vomiting SKIN: Reports redness with open wound to left lower anterior lower leg with some yellowish drainage for one week duration.denies acute pain to area MUSCULOSKELETAL: Denies myalgia. NEUROLOGIC: Denies headache, numbness All systems reviewed & are unremarkable except as noted in HPI and below PMFSH Past Medical History Medical History Arthritis Carotid atherosclerosis Essential (primary) hypertension Heart murmur History of bruising easily History of diverticulosis Hypercholesteremia Hyperlipidemia Vitamin D deficiency Surgical History Surgical History H/O adenoidectomy (~1952) H/O tubal ligation (~1974) History of arthroplasty of knee History of bilateral cataract extraction (~2017) History of bladder suspension procedure (~2003) History of carpal tunnel release Left 2007 Right 2010 History of dental surgery History of knee replacement (~2016) Left History of partial knee replacement (~2015) History of removal of retained hardware (~2016) Implant removal due to infection History of total right knee replacement (~12/06/22) Hx of joint replacement (~2011) Right Great Toe S/P meniscectomy (~2015) Medial Meniscectomy Status post trigger finger release (~2015) Left Middle Family History Family History Mother Family history of cardiovascular disease, Onset Age: 73 Family history of malignant neoplasm Family history of arthritis Father Family history of cardiovascular disease, Onset Age: 80 Grandparent Family history of cardiovascular disease, Onset Age: 88 Family history of arthritis, Onset Age: 73 Family history of malignant neoplasm, Onset Age: 62 Sibling Family history of cardiovascular disease Social History Social History Smoking packs per day: 1.5 Smoking cigarettes per day: 30.0 Years smoked: 10 Smoking pack-years: 15.00 Smoking status: Former smoker Tobacco type: cigarettes Second hand tobacco smoke exposure: No Smoking end date: 04/10/99 Additional smoking assessment comment
== END 2023-08-18 12:03 | disposition home or self-care (01) ==
PROVIDERS: Emergency Provider Registered Nurse; PCP Family Medicine
DX: S81.802A Unspecified open wound, left lower leg, initial encounter (principal); W22.8XXA Striking against or struck by other objects, initial encounter; M19.90 Unspecified osteoarthritis, unspecified site; I10 Essential (primary) hypertension; R01.1 Cardiac murmur, unspecified; E78.00 Pure hypercholesterolemia, unspecified; E78.5 Hyperlipidemia, unspecified; Z98.42 Cataract extraction status, left eye; Z98.41 Cataract extraction status, right eye; Z96.653 Presence of artificial knee joint, bilateral
CPT/HCPCS: 99213; G0463

== ENCOUNTER 2023-12-17 09:50 | Emergency (ER) | payer MEDICARE, BC, SELFPAY ==
[2023-12-17 09:58] VITALS: BP 141/72; PULSE 83; RESP 20; TEMP 36.6; O2SAT 98
--- NOTE | 2023-12-17 10:31 | ED.URI ---
HPI - URI/Sore Throat General Chief Complaint: Upper Respiratory Infection Stated Complaint: throat/congestion/sinus/cough Time Seen by Provider: 12/17/23 10:12 Source: patient, RN notes reviewed and old records reviewed Mode of arrival: ambulatory Limitations: no limitations History of Present Illness HPI Narrative: 83 year old female who reports to express care with complaints of 6 day history of sore throat which porter, chest congestion with cough, head congestion and drainage, headache and fatigue. Patient reports that she has a little shortness of breath with her cough no tachypnea noted with SAO2 98% on room air. Patient reports no known fevers, has been taking some throat lozenges for sore throat. MD elicited complaint: cough and sore throat Onset (ago): day(s) (6) Severity: moderate Able to tolerate fluids by mouth: Yes Treatments prior to arrival: other (throat lozengers) Related Data Allergies Allergy/AdvReac Type Severity Reaction Status Date / Time ceftriaxone Allergy Unknown HIVES/ITCHING/FLUSHED Verified 12/17/23 10:00 FEELING Cephalosporins Allergy Unknown HIVES/ITCHING/FLUSHED Verified 12/17/23 10:00 FEELING Review of Systems Review of Systems: CONSTITUTIONAL: Reports malaise, no chills, sweats, or fever, states fatigue. EYES: Denies visual changes, redness, or discharge. ENT: Reports rhinorrhea, congestion, sinus pain, no otalgia and positive for sore throat. CARDIOVASCULAR: Denies chest pain, palpitations, or edema. RESPIRATORY: Reports cough.?states little dyspnea with cough GASTROINTESTINAL: Denies abdominal pain, nausea, vomiting, diarrhea SKIN: Denies rash or itching. MUSCULOSKELETAL: Denies myalgia. NEUROLOGIC: Reports headache. All systems reviewed & are unremarkable except as noted in HPI and below PMFSH Past Medical History Medical History Arthritis Carotid atherosclerosis Essential (primary) hypertension Heart murmur History of bruising easily History of diverticulosis Hypercholesteremia Hyperlipidemia Vitamin D deficiency Surgical History Surgical History H/O adenoidectomy (~1953) H/O tubal ligation (~1974) History of arthroplasty of knee History of bilateral cataract extraction (~2018) History of bladder suspension procedure (~2003) History of carpal tunnel release Left 2007 Right 2010 History of dental surgery History of knee replacement (~2016) Left History of partial knee replacement (~2015) History of removal of retained hardware (~2016) Implant removal due to infection History of total right knee replacement (~12/06/22) Hx of joint replacement (~2011) Right Great Toe S/P meniscectomy (~2015) Medial Meniscectomy Status post trigger finger release (~2015) Left Middle Family History Family History Mother Family history of cardiovascular disease, Onset Age: 73 Family history of malignant neoplasm Family history of arthritis Father Family history of cardiovascular disease, Onset Age: 80 Grandparent Family history of cardiovascular disease, Onset Age: 88 Family history of arthritis, Onset Age: 73 Family history of malignant neoplasm, Onset Age: 62 Sibling Family history of cardiovascular disease Social History Social History Smoking packs per day: 1.5 Smoking cigarettes per day: 30.0 Years smoked: 10 Smoking pack-years: 15.00 Smoking status: Former smoker Tobacco type: cigarettes Second hand tobacco smoke exposure: No Smoking end date: 04/10/99 Additional smoking assessment comments: STATES SMOKED 1-2PKS/DAY-PENDING THE DAY - DENIES ALL FORMS OF TOBACCO USE Alcohol intake: never Substance use: never Substance use type: does not use Do You Feel Safe in your Home?:
[2023-12-17 10:38] LABS: EDINFLUASCREEN Negative (Negative); EDINFLUBSCREEN Negative (Negative); EDSTREPNEGPOS1 Negative (Negative)
== END 2023-12-17 10:50 | disposition home or self-care (01) ==
PROVIDERS: Emergency Provider Registered Nurse; PCP Family Medicine
DX: J06.9 Acute upper respiratory infection, unspecified (principal); R05.9 Cough, unspecified; Z20.822 Contact with and (suspected) exposure to COVID-19; Z87.891 Personal history of nicotine dependence; M19.90 Unspecified osteoarthritis, unspecified site; I10 Essential (primary) hypertension; R01.1 Cardiac murmur, unspecified; E78.00 Pure hypercholesterolemia, unspecified; E78.5 Hyperlipidemia, unspecified; E55.9 Vitamin D deficiency, unspecified; Z98.42 Cataract extraction status, left eye; Z98.41 Cataract extraction status, right eye; Z96.653 Presence of artificial knee joint, bilateral
CPT/HCPCS: 87081; 87426; 87804; 87880; 99213; G0463

== ENCOUNTER 2024-01-15 13:35 | Emergency (ER) | payer MEDICARE, BC, SELFPAY ==
[2024-01-15 13:46] VITALS: BP 146/78; PULSE 77; RESP 20; TEMP 36.7; O2SAT 96
--- NOTE | 2024-01-15 14:30 | ED.WOUNDLAC ---
HPI - Wound/Laceration General Chief Complaint: Wound/Laceration Stated Complaint: Laceration To Finger Time Seen by Provider: 01/15/24 14:30 Source: patient Mode of arrival: ambulatory Limitations: no limitations History of Present Illness HPI narrative: 83-year-old female presents with laceration to left index finger. Patient was cutting fabric and cut herself with metal fabricating inspector. Bleeding controlled on arrival. Skin flap noted. Tetanus up To date. All systems reviewed and negative except as noted above. Related Data Allergies Allergy/AdvReac Type Severity Reaction Status Date / Time ceftriaxone Allergy Unknown HIVES/ITCHING/FLUSHED Verified 01/15/24 13:56 FEELING Cephalosporins Allergy Unknown HIVES/ITCHING/FLUSHED Verified 01/15/24 13:56 FEELING Review of Systems Review of Systems: CONSTITUTIONAL: Denies fever, chills, or sweats. EYES: Denies visual changes, redness, or discharge. ENT: Denies rhinorrhea, congestion, sore throat, or otalgia. CARDIOVASCULAR: Denies chest pain, palpitations, or edema. RESPIRATORY: Denies cough or dyspnea. GASTROINTESTINAL: Denies abdominal pain, nausea, vomiting, or diarrhea. GENITOURINARY: Denies dysuria or hematuria. SKIN: Reports laceration to left index finger. MUSCULOSKELETAL: Denies back pain, joint pain, or myalgia. NEUROLOGIC: Denies headache, numbness, or weakness. PSYCHIATRIC: Denies anxiety or depression. All other systems reviewed are negative, except as documented in HPI. [facility] Past Medical History Medical History Arthritis Carotid atherosclerosis Essential (primary) hypertension Heart murmur History of bruising easily History of diverticulosis Hypercholesteremia Hyperlipidemia Vitamin D deficiency Surgical History Surgical History H/O adenoidectomy (~3) H/O tubal ligation (~1974) History of arthroplasty of knee History of bilateral cataract extraction (~2017) History of bladder suspension procedure (~2003) History of carpal tunnel release Left 2007 Right 2010 History of dental surgery History of knee replacement (~2016) Left History of partial knee replacement (~2015) History of removal of retained hardware (~2016) Implant removal due to infection History of total right knee replacement (~12/06/22) Hx of joint replacement (~2011) Right Great Toe S/P meniscectomy (~2015) Medial Meniscectomy Status post trigger finger release (~2015) Left Middle Family History Family History Mother Family history of cardiovascular disease, Onset Age: 73 Family history of malignant neoplasm Family history of arthritis Father Family history of cardiovascular disease, Onset Age: 80 Grandparent Family history of cardiovascular disease, Onset Age: 88 Family history of arthritis, Onset Age: 73 Family history of malignant neoplasm, Onset Age: 62 Sibling Family history of cardiovascular disease Social History Social History Smoking packs per day: 1.5 Smoking cigarettes per day: 30.0 Years smoked: 10 Smoking pack-years: 15.00 Smoking status: Former smoker Tobacco type: cigarettes Second hand tobacco smoke exposure: No Smoking end date: 04/10/99 Additional smoking assessment comments: STATES SMOKED 1-2PKS/DAY-PENDING THE DAY - DENIES ALL FORMS OF TOBACCO USE Alcohol intake: never Substance use: never Substance use type: does not use Do You Feel Safe in your Home?: Yes Lack of Transportation: No Lack of Food: Never True Current Housing: I Have Housing Concerned About Future Housing: No Difficulty Paying Gas/Electric Bills: No Difficulty Paying for Meds: No Currently Unemployed: No Education: High School Diploma/GED Difficulty w/ Childcare or Famil
== END 2024-01-15 14:40 | disposition home or self-care (01) ==
PROVIDERS: Emergency Provider Nurse Practitioner Family; PCP Family Medicine
DX: S61.211A Laceration without foreign body of left index finger without damage to nail, initial encounter (principal); W27.8XXA Contact with other nonpowered hand tool, initial encounter; Z87.891 Personal history of nicotine dependence; M19.90 Unspecified osteoarthritis, unspecified site; I10 Essential (primary) hypertension; R01.0 Benign and innocent cardiac murmurs; E78.00 Pure hypercholesterolemia, unspecified; E78.5 Hyperlipidemia, unspecified; E55.9 Vitamin D deficiency, unspecified; Z98.42 Cataract extraction status, left eye; Z98.41 Cataract extraction status, right eye
CPT/HCPCS: 99212; G0463

== ENCOUNTER 2024-02-09 19:17 | Inpatient (IN) | payer MEDICARE, BC, SELFPAY ==
--- NOTE | ~2024-02-09 | CT_ITS ---
EXAMINATION: CT abdomen pelvis w con DATE: 02/09/2024 23:44 INDICATION: Abdominal pain TECHNIQUE: Computed tomography (CT) of the abdomen and pelvis was performed with 100 mL Omnipaque-350 intravenous contrast. Automated exposure control and iterative reconstruction technique were employe d. The dose-length product was 358.43 mGy-cm. COMPARISON: None FINDINGS: Mild dependent atelectasis in the bilateral lower lobes. Heart size is normal. Atherosclerotic brock ry artery calcification and aortic valve calcific lesion. No pericardial or pleural effusion. Small s liding-type hiatal hernia. Focal hepatic steatosis at the ligamentum teres. Gallbladder, spleen, panc reas, bilateral adrenal glands and kidneys are normal. Left splenorenal collaterals draining to circu maortic anterior and posterior left renal veins as well as to the left hemiazygos vein which suggests possible portal venous hypertension. There are few sigmoid diverticula without adjacent inflammatory stranding to suggest diverticulitis. Bowels including the appendix are otherwise normal. Bladder, ut erus and bilateral adnexa are unremarkable. No free intraperitoneal gas or fluid. No pathologically e nlarged There is calcified atherosclerosis of the aorta and many of the other arteries. lymphadenopat hy. Small fat-containing left inguinal hernia. Mild lumbar and moderate lower thoracic spondylosis. IMPRESSION: 1. No acute intra-abdominal/pelvic process. 2. Small sliding-type hiatal hernia. 3. Splenorenal collaterals suggesting portal venous hypertension. Reviewed, dictated and finalized at location A.
[2024-02-09 19:22] VITALS: BP 133/61; PULSE 115; RESP 20; TEMP 36.8; O2SAT 97
--- NOTE | 2024-02-09 21:29 | ECG_ITS ---
Test Date: 2024-02-09 21:44:22 Measurements Intervals [place] Rate: 100 P: 50 OR: 174 QRS: 27 QRSD: 94 T: 35 QT: 361 QTc: 467 Interpretive Statements [address]US T[address] DEPRESSION IN ANTEROLAT/INF LEADS- CONSIDER ISCHEMIA BASELINE ARTIFACT- I, III, AVR, AVL, AVF ABNORMAL ECG No previous ECG available for comparison Electronically Signed On 02-10-2024 07:52:04 CDT by Mati Olivera D.O.
--- NOTE | 2024-02-09 21:33 | ED.GENADULT ---
HPI - General Adult General Chief complaint: Nausea/Vomiting/Diarrhea Stated complaint: vomiting and chills Time Seen by Provider: 02/09/24 21:16 History of Present Illness HPI narrative: Patient is a 83-year-old female who presents emergency department with chief complaint of nausea vomiting. The patient reports that around 2200 yesterday she started having nausea vomiting has been able to keep anything down. Patient was weak to the point that she has been unable to tolerate p.o. intake. The patient had a loose bowel movement reports that she has some discomfort in her lower quadrants of her abdomen reports he has had some prior history of diverticulitis in the past the patient reports that she feels achy all over Related Data Allergies Allergy/AdvReac Type Severity Reaction Status Date / Time ceftriaxone Allergy Unknown HIVES/ITCHING/FLUSHED Verified 02/09/24 19:30 FEELING Cephalosporins Allergy Unknown HIVES/ITCHING/FLUSHED Verified 02/09/24 19:30 FEELING Review of Systems Review of Systems: A 10 system review of systems was completed on the patient and is negative except for what is stated in the HPI. Nursing and ancillary documentation was reviewed. [facility] Past Medical History Medical History Arthritis Carotid atherosclerosis Essential (primary) hypertension Heart murmur History of bruising easily History of diverticulosis Hypercholesteremia Hyperlipidemia Vitamin D deficiency Surgical History Surgical History H/O adenoidectomy (~1952) H/O tubal ligation (~1974) History of arthroplasty of knee History of bilateral cataract extraction (~2017) History of bladder suspension procedure (~2003) History of carpal tunnel release Left 2007 Right 2010 History of dental surgery History of knee replacement (~2016) Left History of partial knee replacement (~2015) History of removal of retained hardware (~2016) Implant removal due to infection History of total right knee replacement (~12/06/22) Hx of joint replacement (~2011) Right Great Toe S/P meniscectomy (~2015) Medial Meniscectomy Status post trigger finger release (~2015) Left Middle Family History Family History Mother Family history of cardiovascular disease, Onset Age: 73 Family history of malignant neoplasm Family history of arthritis Father Family history of cardiovascular disease, Onset Age: 80 Grandparent Family history of cardiovascular disease, Onset Age: 88 Family history of arthritis, Onset Age: 73 Family history of malignant neoplasm, Onset Age: 62 Sibling Family history of cardiovascular disease Social History Social History Smoking packs per day: 1.5 Smoking cigarettes per day: 30.0 Years smoked: 10 Smoking pack-years: 15.00 Smoking status: Former smoker Tobacco type: cigarettes Second hand tobacco smoke exposure: No Smoking end date: 04/10/99 Additional smoking assessment comments: STATES SMOKED 1-2PKS/DAY-PENDING THE DAY - DENIES ALL FORMS OF TOBACCO USE Alcohol intake: never Substance use: never Substance use type: does not use Do You Feel Safe in your Home?: Yes Lack of Transportation: No Lack of Food: Never True Current Housing: I Have Housing Concerned About Future Housing: No Difficulty Paying Gas/Electric Bills: No Difficulty Paying for Meds: No Currently Unemployed: No Education: High School Diploma/GED Difficulty w/ Childcare or Family Care: No Living arrangements: alone Occupation/Education: occupation Gender identity (if verbalized by the patient): Female Sexual Orientation (if Verbalized by the Patient): Straight or Heterosexual Spiritual care concerns: No Exam Narrative: GENERAL: Well-appearing, well-nourished, and in no acute distress. HEAD: Normocephalic, atraumatic. EYES: PERRLA and EOMI. ENT: Nares clear, no rhinorrhea or epistaxis. Mucous membranes moist. NECK: Supple. CHEST: Clear to auscultation. No respiratory distress. HEART: Regular rate and rhythm. No murmur heard. Normal peripheral pulses. ABDOMEN: Soft, tenderness palpation lower quadrants of the abdomen, nondistended, normal active bowel sounds. EXTREMITIES: Normal range of motion. No edema. SKIN: Warm, dry, no rash. NEURO: No focal deficits. Alert and oriented x3. PSYCH: Normal mood and affect. Course Vital Signs Vital signs: Vital Signs Temperature 36.8 C 02/09/24 19:22 Pulse Rate 115 H 02/09/24 19:22 Respiratory Rate 20 02/09/24 19:22 Blood Pressure 133/61 11/01/24 19:22 Pulse Oximetry 97 02/09/24 19:22 Oxygen Delivery Room Air 02/09/24 19:22 Temperature 36.8 C 02/09/24 19:22 Pulse Rate 115 H 02/09/24 19:22 Respiratory Rate 16 02/09/24 21:59 Blood Pressure 133/61 02/09/24 19:22 Pulse Oximetry 97 02/09/24 21:59 Oxygen Delivery Room Air 02/09/24 19:22 Medical Decision Making [facility] Narrative Medical decision making narrative: differential diagnosis includes bowel obstruction, diverticulitis, intra-abdominal infection, dehydration, electrolyte abnormality, ACS EKG showed some ST depressions but no ST elevation initial troponin was elevated 0.091 this is subsequently increased. The patient was given 325 mg of aspirin and serial troponins we ordered on the patient CT scan of the abdomen pelvis showed no acute abnormality potassium was 2.9 the patient has been given IV potassium and p.o. potassium Vital Signs Vital Signs: Vital Signs Temperature 36.8 C 02/09/24 19:22 Pulse Rate 115 H 02/09/24 19:22 Respiratory Rate 20 02/09/24 19:22 Blood Pressure 133/61 02/09/24 19:22 Pulse Oximetry 97 02/09/24 19:22 Oxygen Delivery Room Air 02/09/24 19:22 Temperature 36.8 C 02/09/24 19:22 Pulse Rate 115 H 02/09/24 19:22 Respiratory Rate 16 02/09/24 21:59 Blood Pressure 133/61 02/09/24 19:22 Pulse Oximetry 97 02/09/24 21:59 Oxygen Delivery Room Air 02/09/24 19:22 Lab Data 02/09/24 21:46 02/09/24 21:46 Labs: Lab Results 02/09/24 02/09/24 02/10/24 Range/Units 21:46 21:47 01:57 WBC 8.4 (4.5-10.0) K/mm3 RBC 4.02 L (4.2-5.4) M/mm3 Hgb 13.1 (12.0-15.0) g/dL Hct 38.6 (37.0-47.0) % MCV 96.0 (80-100) fl MCH 32.6 (26-34) pg MCHC 33.9 (32-36) g/dl RDW 12.9 (11.5-14.5) % Plt Count 113 L (150-375) k/mm3 MPV 10.0 (7.4-10.4) fl Immature Gran % (Auto) Not Reportable Neut % (Auto) Not Reportable Lymph % (Auto) Not Reportable Perkins % (Auto) Not Reportable Eos % (Auto) Not Reportable Baso % (Auto) Not Reportable Lymph # (Auto) Not Reportable Perkins # (Auto) Not Reportable Eos # (Auto) Not Reportable Baso # (Auto) Not Reportable Abs Immat Gran (auto) Not Reportable Absolute Neuts (auto) Not Reportable Absolute Nucleated RBC Not Reportable Total Counted 100 Neutrophils % (Manual) 86 H (46-73) % Band Neutrophils % 6 (0-6) % Lymphocytes % (Manual) 1.0 L (18-44) % Monocytes % (Manual) 7 (3-9) % Nucleated RBC % Not Reportable Abs Neuts (Manual) 7.72 H (1.7-7.2) K/mm3 Abs Lymphs (Manual) 0.08 L (1.1-4.5) K/mm3 Abs Monocytes (Manual) 0.58 (0.1-0.90) K/mm3 Nucleated RBCs 1 % Platelet Estimate Decreased (Adequate) % Immature Plt Fraction 2.3 (0.9-11.2) % Schistocytes None seen Sodium 137 (137-145) mmol/L Potassium 2.9 L (3.4-5.0) mmol/L Chloride 103 (98-107) mmol/L Carbon Dioxide 22 (22-30) mmol/L Anion Gap 12 (4-12) mmol/L BUN 28 H D (7-17) mg/dL Creatinine 0.80 (0.7-1.0) mg/dL Estim Creat Clear Calc 38 ml/min Estimated GFR > 60 (59 - ) Glucose 114 H (65-110) mg/dL Lactic Acid 1.0 (0.7-2.0) mmol/L Calcium 9.7 (8.4-10.2) mg/dL Magnesium 1.6 (1.6-2.3) mg/dL Total Bilirubin 0.8 (0.2-1.3) mg/dL Direct Bilirubin 0.0 (0-0.3) mg/dL AST 68 H (14-36) U/L ALT 42 H (6-35) U/L Alkaline Phosphatase 75 (38-126) U/L Total Creatine Kinase 249 H (30-135) U/L Troponin I 0.091 H* Pending (0.000-0.034) ng/mL Total Protein 8.0 (6.3-8.2) g/dL Albumin 4.2 (3.5-5.1) g/dL Lipase 27 (23-300) U/L Influenza A (RT-PCR) Negative (Negative) Influenza B (RT-PCR) Negative (Negative) RSV (RT-PCR) Negative (Negative) SARS-CoV-2 RNA (RT-PCR) Negative (Negative) Discharge Plan Discharge Clinical Impression: Nausea & vomiting, Elevated troponin, Acute hypokalemia Patient Disposition: Still a Patient Condition: Stable Prescriptions: No Action lisinopril 10 mg tablet See Rx Instructions .ROUTE .COMPLEX Qty: 90 1RF Dose Instruction: TAKE 1 TABLET BY MOUTH EVERY DAY Rx Instructions: TAKE 1 TABLET BY MOUTH EVERY DAY atorvastatin 40 mg tablet See Rx Instructions .ROUTE .COMPLEX Qty: 90 1RF Dose Instruction: TAKE 1 TABLET BY MOUTH EVERY DAY Rx Instructions: TAKE 1 TABLET BY MOUTH EVERY DAY amlodipine 2.5 mg tablet 2.5 mg PO DAILY Qty: 90 1RF meloxicam 15 mg tablet See Rx Instructions .ROUTE .COMPLEX Qty: 90 1RF Dose Instruction: TAKE 1 TABLET BY MOUTH DAILY Rx Instructions: TAKE 1 TABLET BY MOUTH DAILY Follow-up/Referrals: Juan A Ralph MD [Primary Care Provider] - Time of Disposition: 02:34
[2024-02-09] MEDS: ONDANSETRON HCL ODT 4 MG TABLET PO (21:40)
[2024-02-09] MEDS: SODIUM CHLORIDE 0.9% IV 1,000 ML 999 ML IV CONT (21:40)
[2024-02-09 21:55] LABS: Hematocrit 38.6 % (37.0-47.0); Hemoglobin 13.1 g/dL (12.0-15.0); Immature Platelet Fraction Pct 2.3 % (0.9-11.2); Mean Corpuscular HGB Conc 33.9 g/dl (32-36); Mean Corpuscular Hemoglobin 32.6 pg (26-34); Platelet Count Result 113 k/mm3 (150-375); Red Blood Count 4.02 M/mm3 (4.2-5.4); Red Cell Distribution Width 12.9 % (11.5-14.5); White Blood Count 8.4 K/mm3 (4.5-10.0)
[2024-02-09 21:59] VITALS: RESP 16; O2SAT 97
[2024-02-09 22:10] LABS: Creatine Kinase 249 U/L (30-135); Magnesium 1.6 mg/dL (1.6-2.3)
[2024-02-09 22:11] LABS: Alanine Aminotransferase 42 U/L (6-35); Albumin Level 4.2 g/dL (3.5-5.1); Alkaline Phosphatase 75 U/L (38-126); Anion Gap 12 mmol/L (4-12); Aspartate Amino Transferase 68 U/L (14-36); Bilirubin,Total 0.8 mg/dL (0.2-1.3); Blood Urea Nitrogen 28 mg/dL (7-17); Calcium 9.7 mg/dL (8.4-10.2); Carbon Dioxide 22 mmol/L (22-30); Chloride 103 mmol/L (98-107); Estimated CRCL calculation 38 ml/min; Estimated Glomerular Filt Rate > 60; Glucose 114 mg/dL (65-110); Lipase 27 U/L (23-300); Potassium 2.9 mmol/L (3.4-5.0); Sodium 137 mmol/L (137-145)
[2024-02-09 22:22] LABS: Band Neutrophils Percent 6 % (0-6); Lymphocytes Absolute Manual 0.08 K/mm3 (1.1-4.5); Monocytes Absolute Manual 0.58 K/mm3 (0.1-0.90); Monocytes Percent Manual 7 % (3-9); Neutrophils Absolute Manual 7.72 K/mm3 (1.7-7.2); Neutrophils Percent Manual 86 % (46-73); Nucleated Red Blood Cells 1 %; Platelet Estimate Decreased (Adequate); Schistocytes None Seen; Total Cells Counted 100
[2024-02-09 22:24] LABS: Troponin I 0.091 ng/mL (0.000-0.034)
[2024-02-09 22:31] LABS: Influenza A QL RT-PCR Negative (Negative); Influenza B QL RT-PCR Negative (Negative); RSV RNA, RT-PCR Negative (Negative); SARS-CoV-2 RNA PCR Negative (Negative)
[2024-02-10] VITALS (17 sets, daily range): BP systolic 127–186; BP diastolic 63–101; PULSE 62–71; RESP 16–22; TEMP 36.6–36.7; O2SAT 95–97; BMI 26.4
--- NOTE | 2024-02-10 01:58 | ECG_ITS ---
Test Date: 2024-02-10 02:01:15 Measurements Intervals [place] Rate: 76 P: 60 AR: 159 QRS: 17 QRSD: 98 T: 18 QT: 422 QTc: 476 Interpretive Statements SINUS RHYTHM CONSIDER INFERIOR INFARCT, AGE INDETERMINATE BORDERLINE ST ABNORMALITY- LATERAL LEADS ABNORMAL ECG Compared to ECG 02/09/2024 21:44:22 HEART RATE HAS DECREASED ST DEPRESSION IMPROVED Electronically Signed On 02-10-2024 08:00:55 CDT by Mati Olivera D.O.
[2024-02-10 02:37] LABS: Troponin I 0.136 ng/mL (0.000-0.034)
--- NOTE | 2024-02-10 02:40 | PM.IMHP ---
H&P: HPI History of Present Illness Date/Time: 02/10/24 02:40 Chief Complaint: Vomiting. Narrative: This is a very pleasant 83-year-old female with hypertension dyslipidemia presented to the emergency department via private vehicle for evaluation of vomiting. The patient provides the following history. at about 22:30 she began to feel sick to her stomach and was having a cramping discomfort in the lower abdomen. She reports having multiple episodes of non bloody and non bilious emesis followed by dry heaves. She had chicken salad with nuts for dinner and she was initially concerned that she had diverticulitis. The abdominal pain seemed to improve however she continued to have the vomiting and dry heaves. Additionally she reports associated headache, body aches, chills, and subjective fever. She has been having more heartburn than usual and endorses quite a bit of belching. Today she was feeling quite weak and unsteady on her feet with walking. She continues to have nausea and vomits any time she tries to eat or drink. She denies sick contacts. She also denies sinus congestion, sore throat, productive cough, chest pain, pleuritic pain, palpitations, current abdominal pain, diarrhea, dysuria, syncope, and near-syncope. In the ED: Vital signs were stable on arrival. Labs are significant for a platelet count of 113, potassium 2.9, BUN 28, creatinine 0.80, lactic acid 1.0, AST 68, ALT 42, total CK 249, troponin 0.091. She tested negative for influenza, RSV, and COVID. CT of the abdomen and pelvis did not show any acute findings. EKG showed sinus tachycardia on arrival with some ST depressions in the lateral leads. She was given aspirin 324 mg x 1 for the elevated troponin. She was also given a L of normal saline, 40 mEq of potassium chloride, and ondansetron with improvement in her symptoms. She is being admitted however for the elevated troponin. Review of Systems Review of Systems: 12 systems were reviewed and are negative except for as per HPI. [facility] Past Medical History Medical History (Updated 02/10/24 @ 06:21 by Lissy King PA-C) Arthritis Carotid atherosclerosis Diverticulosis Essential (primary) hypertension History of diverticulosis Hypercholesteremia Hyperlipidemia Vitamin D deficiency Surgical History Surgical History H/O adenoidectomy (~1952) H/O tubal ligation (~1974) History of arthroplasty of knee History of bilateral cataract extraction (~2017) History of bladder suspension procedure (~2003) History of carpal tunnel release Left 2007 Right 2010 History of dental surgery History of knee replacement (~2016) Left History of partial knee replacement (~2015) History of removal of retained hardware (~2016) Implant removal due to infection History of total right knee replacement (~12/06/22) Hx of joint replacement (~2011) Right Great Toe S/P meniscectomy (~2015) Medial Meniscectomy Status post trigger finger release (~2015) Left Middle Family History Family History Mother Family history of cardiovascular disease, Onset Age: 73 Family history of malignant neoplasm Family history of arthritis Father Family history of cardiovascular disease, Onset Age: 80 Grandparent Family history of cardiovascular disease, Onset Age: 88 Family history of arthritis, Onset Age: 73 Family history of malignant neoplasm, Onset Age: 62 Sibling Family history of cardiovascular disease Social History Social History (Updated 02/10/24 @ 06:20 by Lissy King PA-C) Social History: Surrogate medical decision maker: Haily Wilcox, daughter. Code status: Full code. Smoking packs per day: 1.5 Smoking cigarettes per day: 30.0 Years smoked: 10 Smoking pack-years: 15.00 Smoking status: Former smoker Tobacco type: cigarettes Second hand tobacco smoke exposure: No Smoking end date: 04/10/99 Alcohol intake: never Substance use: never Substance use type: does not use Do You Feel Safe in your Home?: Yes Lack of Transportation: No Lack of Food: Never True Current Housing: I Have Housing Concerned About Future Housing: No Difficulty Paying Gas/Electric Bills: No Difficulty Paying for Meds: No Currently Unemployed: No Education: High School Diploma/GED Difficulty w/ Childcare or Family Care: No Spiritual care concerns: No Meds Home Medications and Allergies Home Medications Medication Instructions Recorded Confirmed Type lisinopril 10 mg tablet See Rx Instructions .Route 07/11/23 01/15/24 Rx .COMPLEX #90 tabs atorvastatin 40 mg tablet See Rx Instructions .Route 07/19/23 01/15/24 Rx .COMPLEX #90 tabs amlodipine 2.5 mg tablet 2.5 mg PO DAILY #90 tabs 10/05/23 01/15/24 Rx meloxicam 15 mg tablet See Rx Instructions .Route 12/07/23 01/15/24 Rx .COMPLEX #90 tabs Allergies Allergy/AdvReac Type Severity Reaction Status Date / Time ceftriaxone Allergy Unknown HIVES/ITCHING/FLUSHED Verified 02/09/24 19:30 FEELING Cephalosporins Allergy Unknown HIVES/ITCHING/FLUSHED Verified 02/09/24 19:30 FEELING Vital Signs Vital Signs - 24 hr 02/09/24 19:22 02/09/24 21:59 Temperature 98.2 F Pulse Rate 115 H Respiratory Rate 20 16 Blood Pressure 133/61 Pulse Oximetry 97 97 Oxygen Delivery Room Air Exam Narrative: General: Mildly ill-appearing elderly female in the semi-Palomares position in bed in no acute distress. Weight: 60.04 kg. BMI: 26.6. HEENT: PERRL, EOMI. Sclera anicteric. Tacky mucous membranes. Neck: Supple. Respiratory: Lungs are clear to auscultation bilaterally. Cardiovascular: Regular rate and rhythm with S1-S2. Systolic murmur heard at the upper sternal border. Gastrointestinal: Abdomen is soft, nontender, and nondistended with positive bowel sounds. Bladder feels a bit distended. Skin: Warm and dry. Extremities: No cyanosis, clubbing, or edema. Radial and pedal pulses intact. Neurological: Alert. Cranial nerves 2-12 are grossly intact. No gross focal deficits to casual conversation. Psychiatric: Pleasant and cooperative with normal mood and affect. Judgment and insight intact. H&P: Results Labs Labs: Short CBC 02/09/24 Range/Units 21:46 WBC 8.4 (4.5-10.0) K/mm3 Hgb 13.1 (12.0-15.0) g/dL Hct 38.6 (37.0-47.0) % Plt Count 113 L (150-375) k/mm3 [facility] 02/09/24 21:46 Sodium 137 Potassium 2.9 L Chloride 103 Carbon Dioxide 22 BUN 28 H D Creatinine 0.80 Glucose 114 H Calcium 9.7 Cardiac Enzymes 02/09/24 02/10/24 Range/Units 21:46 01:57 Total Creatine Kinase 249 H (30-135) U/L Troponin I 0.091 H* 0.136 H* D (0.000-0.034) ng/mL Liver Function 02/09/24 Range/Units 21:46 Total Bilirubin 0.8 (0.2-1.3) mg/dL Direct Bilirubin 0.0 (0-0.3) mg/dL AST 68 H (14-36) U/L ALT 42 H (6-35) U/L Alkaline Phosphatase 75 (38-126) U/L Albumin 4.2 (3.5-5.1) g/dL Assessment and Plan Assessment and plan (1) Elevated troponin: Code(s): R79.89 - Other specified abnormal findings of blood chemistry Status: Acute (2) Viral illness: Code(s): B34.9 - Viral infection, unspecified Status: Acute (3) Elevated LFTs: Code(s): R79.89 - Other specified abnormal findings of blood chemistry Status: Acute (4) Thrombocytopenia: Code(s): D69.6 - Thrombocytopenia, unspecified Status: Acute (5) Hypokalemia: Code(s): E87.6 - Hypokalemia Status: Acute (6) Essential (primary) hypertension: Code(s): I10 - Essential (primary) hypertension Status: Acute Plan The patient presented to the emergency department for evaluation of nausea and vomiting as detailed in HPI. Labs, imaging, EKG, and all reports were personally reviewed. She likely has a viral illness and is feeling better with supportive care. CT of the abdomen pelvis did not show any acute findings. AST and ALT are a bit elevated but she does not have any focal findings on exam. Incidentally troponin was drawn and was elevated and is trending upwards slightly. Initial EKG showed some ST depression in the lateral leads which improved with slowing of her rate. She has not had any chest pain but reports having increase in heartburn lately. Hold on anticoagulation for now as her troponins have been flat and she is not having any chest pain. Her platelets are also low however they have been so in the past and will be monitored. Echocardiogram has been ordered and cardiology has been consulted for their input. Potassium will be replaced and monitored. Blood pressures were reviewed and they are stable. Her home medications will be reviewed and resumed as appropriate. Findings and treatment plan were discussed with the patient. Questions were solicited and answered to satisfaction. The patient's medical management will be taken over by the hospitalist team in a.m. Quality VTE Prophylaxis VTE prophylaxis: mechanical ordered If No VTE Prophylaxis Answer both mechanical and pharmacologic: Reason no pharmacologic proph: medical contraindication thrombocytopenia The patient has been admitted under observation status. Hospitalist MIPS Advance Care Plan I have confirmed that the patient's Advanced Care Plan is present, code status is documented, or surrogate decision maker is listed in patient medical record.: Yes Medication Reconciliation I have utilized all available resources to obtain, update and review the patients current medications (includes all prescriptions, OTC, herbals, cannabis, and nutritional supplements).: Yes
[2024-02-10] MEDS: ASPIRIN 81 MG CHEWABLE TABLET 324 MG PO (02:51)
[2024-02-10] MEDS: POTASSIUM CHLORIDE 20 MEQ PACKET (FOR LIQUID) 40 MEQ PO (02:52)
[2024-02-10] MEDS: KCL 20 MEQ/SW 100 ML 100 ML 50 MEQ IVPB (02:54)
[2024-02-10] MEDS: SODIUM CHLORIDE 0.9% IV 1,000 ML 75 ML IV CONT ×2 (03:03→08:05)
--- NOTE | 2024-02-10 06:38 | PC.NURSE ---
no scd's here in the ED. Pt will have SCD's applied when on the floor.
--- NOTE | 2024-02-10 07:32 | ECG_ITS ---
Test Date: 2024-02-10 07:47:51 Measurements Intervals [place] Rate: 37 P: 62 MO: 164 QRS: 26 QRSD: 81 T: 41 QT: 452 QTc: 355 Interpretive Statements SINUS RHYTHM CONSIDER INFERIOR INFARCT, AGE INDETERMINATE ABNORMAL ECG BASELINE ARTIFACT- I, II, III, AVR, AVL Compared to ECG 02/10/2024 02:01:15 NO SIGNIFICANT CHANGE Electronically Signed On 02-10-2024 08:07:07 CDT by Mati Olivera D.O.
[2024-02-10 08:08] LABS: Anion Gap 6 mmol/L (4-12); Blood Urea Nitrogen 23 mg/dL (7-17); Calcium 9.3 mg/dL (8.4-10.2); Carbon Dioxide 24 mmol/L (22-30); Chloride 109 mmol/L (98-107); Estimated CRCL calculation 50 ml/min; Estimated Glomerular Filt Rate > 60; Glucose 98 mg/dL (65-110); Sodium 139 mmol/L (137-145)
--- NOTE | 2024-02-10 08:13 | P.PNIM_ITS ---
Progress Note: A&P Assessment and Plan (1) Elevated troponin: Code(s): R79.89 - Other specified abnormal findings of blood chemistry Status: Acute Assessment and Plan: Incidentally troponin was drawn and was elevated and is trending upwards slightly. Initial EKG showed some ST depression in the lateral leads which improved with slowing of her rate. She has not had any chest pain but reports having increase in heartburn lately. Initially held on anticoagulation as her troponin have been flat and she is not having any chest pain. Troponin elevation was thought to be secondary to demand from tachycardia initially. Her platelets are also low however they have been so in the past and will be monitored. * Echocardiogram has been ordered and cardiology has been consulted for their input. * Troponin has peaked * EKG prn for developing chest pain * Telemetry and admit to IMU (2) Viral illness: Code(s): B34.9 - Viral infection, unspecified Status: Acute Assessment and Plan: The patient presented to the emergency department for evaluation of nausea and vomiting as detailed in HPI She likely has a viral illness and is feeling better with supportive care. CT of the abdomen pelvis did not show any acute findings. AST and ALT are a bit elevated but she does not have any focal findings on exam. * Improving with conservative treatment * She is interested in trying clear liquids * Zofran as needed for nausea * Will advance diet as tolerated (3) Thrombocytopenia: Code(s): D69.6 - Thrombocytopenia, unspecified Status: Acute Assessment and Plan: Platelet count 113 on admission. * no overt signs of bleeding * monitor while on heparin gtt (4) Hypokalemia: Code(s): E87.6 - Hypokalemia Status: Acute Assessment and Plan: Resolved with 60 mEq of potassium. * K+ repeat is 5.0. * repeat BNP in the morning (5) Essential (primary) hypertension: Code(s): I10 - Essential (primary) hypertension Status: Acute Assessment and Plan: Blood pressures were reviewed and they are stable. Her home medications will be reviewed and resumed as appropriate. * Blood pressures 150-180's/70-100's * Resumed lisinopril and amlodipine * Monitor Subjective Date/time seen: 02/10/24 08:13 Interval history: This is a very pleasant lady who presented to the emergency room with complaints of diarrhea and vomiting. Her daughter is at the bedside who is a retired registered nurse. The patient is seen in the emergency room resting on the stretcher in no acute distress. She states her soft stool has decreased and her nausea has resolved since receiving IV fluids. She is interested in trying there liquids. She denies chest pain or shortness of breath during my exam. The patient's daughter reports that she came to her mother's house last night when she called her complaining of not feeling well. Patient was found nearly falling out of bed and was diaphoretic and vomiting. The daughter took her vitals and her heart rate was found to be in the 140s with a blood pressure 140s over 60s. It was at this time she decided to bring her to the emergency room for IV fluids for suspected dehydration. Review of Systems Review of Systems: 12 systems were reviewed and are negativ e except for as per HPI. Exam Narrative: General: appears comfortable, in no acute distress Respiratory: breathing is unlabored with even chest rise/fall, lungs are clear without wheezing, rhonchi, and crackles Cardiovascular: Rate and rhythm regular, normal s1s2, systolic murmur grade 3 Abdomen: Soft, round, non-tender, active bowel sounds Extremities: No cyanosis, edema, clubbing. Pulses 2/2 Neuro: A&O x 4 Skin: Warm, dry, intact Objective Data Vital Signs Vital Signs: Vital Signs - 24 hr 02/09/24 19:22 02/09/24 21:59 02/10/24 05:31 Temperature 98.2 F Pulse Rate 115 H 67 Respiratory Rate 20 16 18 Blood Pressure 133/61 132/80 Pulse Oximetry 97 97 96 Oxygen Delivery Room Air 02/10/24 06:33 02/10/24 06:35 02/10/24 08:05 Temperature Pulse Rate 62 Respiratory Rate 16 Blood Pressure 146/63 H 142/75 H 139/74 Pulse Oximetry 97 Oxygen Delivery Intake/Output Intake/Output: Intake & Output 02/07/24 02/08/24 02/09/24 02/10/24 23:59 23:59 23:59 23:59 Intake Total 1000 476.3 Balance 1000 476.3 Meds/Results Medications: Active Medications Generic Name Dose Route Start Last Admin Trade Name Freq PRN Reason Stop Dose Admin Acetaminophen 650 mg 02/10/24 06:24 Acetaminophen 325 Mg Tablet PO Q6H PRN Mild Pain (1-3) or Fever Sodium Chloride 1,000 mls @ 75 mls/hr 02/10/24 06:26 02/10/24 08:05 Normal Saline Iv IV CONT 02/10/24 19:45 75 mls/hr .[id number] ONE Administration Perflutren Lipid Microsphere 0 ml 02/10/24 06:24 Perflutren Lipid Microspheres 1.5 Ml Vial Diluted To 10 Ml Total Volume IV PUSH 02/13/24 06:24 ONCE PRN adequate visualization Protocol Labs Labs: Laboratory Results - last 24 hr 02/09/24 02/09/24 02/10/24 21:46 21:47 01:57 WBC 8.4 RBC 4.02 L Hgb 13.1 Hct 38.6 MCV 96.0 MCH 32.6 MCHC 33.9 RDW 12.9 Plt Count 113 L MPV 10.0 Immature Gran % (Auto) Not Reportable Neut % (Auto) Not Reportable Lymph % (Auto) Not Reportable [place] % (Auto) Not Reportable Eos % (Auto) Not Reportable Baso % (Auto) Not Reportable Lymph # (Auto) Not Reportable [place] # (Auto) Not Reportable Eos # (Auto) Not Reportable Baso # (Auto) Not Reportable Abs Immat Gran (auto) Not Reportable Absolute Neuts (auto) Not Reportable Absolute Nucleated RBC Not Reportable Total Counted 100 Neutrophils % (Manual) 86 H Band Neutrophils % 6 Lymphocytes % (Manual) 1.0 L Monocytes % (Manual) 7 Nucleated RBC % Not Reportable Abs Neuts (Manual) 7.72 H Abs Lymphs (Manual) 0.08 L Abs Monocytes (Manual) 0.58 Nucleated RBCs 1 Platelet Estimate Decreased % Immature Plt Fraction 2.3 Schistocytes None seen Sodium 137 Potassium 2.9 L Chloride 103 Carbon Dioxide 22 Anion Gap 12 BUN 28 H D Creatinine 0.80 Estim Creat Clear Calc 38 Estimated GFR > 60 Glucose 114 H Lactic Acid 1.0 Calcium 9.7 Magnesium 1.6 Total Bilirubin 0.8 Direct Bilirubin 0.0 AST 68 H ALT 42 H Alkaline Phosphatase 75 Total Creatine Kinase 249 H Troponin I 0.091 H* 0.136 H* D Total Protein 8.0 Albumin 4.2 Lipase 27 Influenza A (RT-PCR) Negative Influenza B (RT-PCR) Negative RSV (RT-PCR) Negative SARS-CoV-2 RNA (RT-PCR) Negative 02/10/24 02/10/24 02/10/24 07:44 07:44 07:44 WBC RBC Hgb Hct MCV MCH MCHC RDW Plt Count MPV Immature Gran % (Auto) Neut % (Auto) Lymph % (Auto) [place] % (Auto) Eos % (Auto) Baso % (Auto) Lymph # (Auto) [place] # (Auto) Eos # (Auto) Baso # (Auto) Abs Immat Gran (auto) Absolute Neuts (auto) Absolute Nucleated RBC Total Counted Neutrophils % (Manual) Band Neutrophils % Lymphocytes % (Manual) Monocytes % (Manual) Nucleated RBC % Abs Neuts (Manual) Abs Lymphs (Manual) Abs Monocytes (Manual) Nucleated RBCs Platelet Estimate % Immature Plt Fraction Schistocytes Sodium Cancelled 139 Potassium Cancelled 5.0 Chloride Cancelled Carbon Dioxide Anion Gap BUN Creatinine Estim Creat Clear Calc Estimated GFR Glucose Lactic Acid Calcium Magnesium Total Bilirubin Direct Bilirubin AST ALT Alkaline Phosphatase Total Creatine Kinase Troponin I Total Protein Albumin Lipase Influenza A (RT-PCR) Influenza B (RT-PCR) RSV (RT-PCR) SARS-CoV-2 RNA (RT-PCR) 02/10/24 02/10/24 02/10/24 07:44 07:44 07:44 WBC RBC Hgb Hct MCV MCH MCHC RDW Plt Count MPV Immature Gran % (Auto) Neut % (Auto) Lymph % (Auto) [place] % (Auto) Eos % (Auto) Baso % (Auto) Lymph # (Auto) [place] # (Auto) Eos # (Auto) Baso # (Auto) Abs Immat Gran (auto) Absolute Neuts (auto) Absolute Nucleated RBC Total Counted Neutrophils % (Manual) Band Neutrophils % Lymphocytes % (Manual) Monocytes % (Manual) Nucleated RBC % Abs Neuts (Manual) Abs Lymphs (Manual) Abs Monocytes (Manual) Nucleated RBCs Platelet Estimate % Immature Plt Fraction Schistocytes Sodium Potassium Chloride 109 H Carbon Dioxide Cancelled 24 Anion Gap Cancelled 6 BUN Cancelled Creatinine Estim Creat Clear Calc Estimated GFR Glucose Lactic Acid Calcium Magnesium Total Bilirubin Direct Bilirubin AST ALT Alkaline Phosphatase Total Creatine Kinase Troponin I Total Protein Albumin Lipase Influenza A (RT-PCR) Influenza B (RT-PCR) RSV (RT-PCR) SARS-CoV-2 RNA (RT-PCR) 02/10/24 02/10/24 02/10/24 07:44 07:44 07:44 WBC RBC Hgb Hct MCV MCH MCHC RDW Plt Count MPV Immature Gran % (Auto) Neut % (Auto) Lymph % (Auto) [place] % (Auto) Eos % (Auto) Baso % (Auto) Lymph # (Auto) [place] # (Auto) Eos # (Auto) Baso # (Auto) Abs Immat Gran (auto) Absolute Neuts (auto) Absolute Nucleated RBC Total Counted Neutrophils % (Manual) Band Neutrophils % Lymphocytes % (Manual) Monocytes % (Manual) Nucleated RBC % Abs Neuts (Manual) Abs Lymphs (Manual) Abs Monocytes (Manual) Nucleated RBCs Platelet Estimate % Immature Plt Fraction Schistocytes Sodium Potassium Chloride Carbon Dioxide Anion Gap BUN 23 H Creatinine Cancelled 0.60 L Estim Creat Clear Calc Cancelled 50 Estimated GFR Cancelled Glucose Lactic Acid Calcium Magnesium Total Bilirubin Direct Bilirubin AST ALT Alkaline Phosphatase Total Creatine Kinase Troponin I Total Protein Albumin Lipase Influenza A (RT-PCR) Influenza B (RT-PCR) RSV (RT-PCR) SARS-CoV-2 RNA (RT-PCR) 02/10/24 02/10/24 02/10/24 07:44 07:44 07:44 WBC RBC Hgb Hct MCV MCH MCHC RDW Plt Count MPV Immature Gran % (Auto) Neut % (Auto) Lymph % (Auto) [place] % (Auto) Eos % (Auto) Baso % (Auto) Lymph # (Auto) [place] # (Auto) Eos # (Auto) Baso # (Auto) Abs Immat Gran (auto) Absolute Neuts (auto) Absolute Nucleated RBC Total Counted Neutrophils % (Manual) Band Neutrophils % Lymphocytes % (Manual) Monocytes % (Manual) Nucleated RBC % Abs Neuts (Manual) Abs Lymphs (Manual) Abs Monocytes (Manual) Nucleated RBCs Platelet Estimate % Immature Plt Fraction Schistocytes Sodium Potassium Chloride Carbon Dioxide Anion Gap BUN Creatinine Estim Creat Clear Calc Estimated GFR > 60 Glucose Cancelled 98 Lactic Acid Calcium Cancelled 9.3 Magnesium Total Bilirubin Direct Bilirubin AST ALT Alkaline Phosphatase Total Creatine Kinase Troponin I Total Protein Albumin Lipase Influenza A (RT-PCR) Influenza B (RT-PCR) RSV (RT-PCR) SARS-CoV-2 RNA (RT-PCR) Quality VTE Prophylaxis VTE prophylaxis: mechanical ordered and pharmacologic ordered
[2024-02-10 08:28] LABS: Troponin I 0.257 ng/mL (0.000-0.034)
[2024-02-10 11:08] LABS: Add Urine Microscopic? YES; Appearance Urine Clear (Clear); Bacteria Urine Rare /hpf; Bilirubin Urine Negative (Negative); Blood Urine Trace (Negative); Color Urine Yellow (Yellow); Glucose Urine UA Negative (Negative); Ketones Urine Trace mg/dL (Negative); Leukocyte Esterase Ur 1+ LEU/UL (Negative); Nitrate Urine Negative (Negative); Non Pathogenic Casts 0-2; Protein Urine Trace mg/dL (Negative); Specific Grav Ur > 1.045 (1.001-1.035); Squamous Epithelial Cell Urine None Seen /hpf (Few); Urobilinogen Urine 0.2 mg/dL (<2.0); pH Urine 5.5 (5.0-9.0)
--- NOTE | 2024-02-10 15:10 | ADMGEN ---
This patient, Linsey Whitney, was admitted to IMU Room 206-01. Patient/family oriented to hospital policies and general routines including ID bracelet, bed and alarms, visiting hours, pain management, procedures, bathroom and other care routines, personal items, smoking policy, room service/diet, and visiting hours. Information on how to activate the Rapid Response Team has been discussed. Patient/Family are encouraged to report perceived risks to care and to ask questions if they do not understand what they are told or what they should do.
[2024-02-10 16:18] LABS: Basophils Percent Auto 0.2 % (0.2-1.2); Hematocrit 37.6 % (37.0-47.0); Hemoglobin 12.4 g/dL (12.0-15.0); Immature Granulocyte Absolute 0.02 K/mm3 (0.00-0.031); Immature Granulocyte Percent A 0.4 % (0-0.5); Immature Platelet Fraction Pct 2.6 % (0.9-11.2); Lymphocytes Absolute Auto 1.28 K/mm3 (0.9-3.2); Lymphocytes Percent Auto 22.9 % (18.3-44.2); Mean Corpuscular Hemoglobin 32.1 pg (26-34); Mean Corpuscular Volume 97.4 fl (80-100); Monocytes Absolute Auto 0.7 K/mm3 (0.1-0.6); Monocytes Percent Auto 12.5 % (2.6-8.5); Neutrophils Absolute Auto 3.6 K/mm3 (1.3-6.7); Platelet Count Result 102 k/mm3 (150-375); Red Blood Count 3.86 M/mm3 (4.2-5.4); Red Cell Distribution Width 13.2 % (11.5-14.5); White Blood Count 5.6 K/mm3 (4.5-10.0)
[2024-02-10 16:31] LABS: Prothrombin Time 13.3 Seconds (11.1-14.7)
[2024-02-10 16:32] LABS: Partial Thromboplastin Time 23.1 Seconds (22.3-36.8)
[2024-02-10 16:46] LABS: Troponin I 0.246 ng/mL (0.000-0.034)
[2024-02-10] MEDS: PANTOPRAZOLE SODIUM IV 40 MG VIAL IV PUSH (16:53)
[2024-02-10] MEDS: ASPIRIN 81 MG ENTERIC TABLET PO (17:10)
[2024-02-10 21:21] LABS: Troponin I 0.221 ng/mL (0.000-0.034)
[2024-02-11] VITALS (10 sets, daily range): BP systolic 141–159; BP diastolic 63–82; PULSE 60–74; RESP 12–18; TEMP 36.5–36.7; O2SAT 95–97
--- NOTE | 2024-02-11 01:03 | PC.NURSE ---
Daylight Savings Time For Daylight Savings Time Ending in the Fall - Clocks are moved back. For Daylight Savings Time Beginning in the Spring - Clocks are moved ahead. For [facility], the time of change occurs at 0200 hrs. Time is taken from the field observer. This entry on the patient's chart recognizes the change in time reflected during documentation. Example: 2 entries for vital signs may be charted for 0200 hrs.
[2024-02-11] MEDS: ACETAMINOPHEN 325 MG TABLET 650 MG PO (03:29)
[2024-02-11 04:20] LABS: Basophils Percent Auto 0.3 % (0.2-1.2); Hemoglobin 12.5 g/dL (12.0-15.0); Immature Granulocyte Absolute 0.01 K/mm3 (0.00-0.031); Immature Granulocyte Percent A 0.3 % (0-0.5); Immature Platelet Fraction Pct 3.2 % (0.9-11.2); Lymphocytes Absolute Auto 1.45 K/mm3 (0.9-3.2); Lymphocytes Percent Auto 40.7 % (18.3-44.2); Mean Corpuscular HGB Conc 32.1 g/dl (32-36); Mean Corpuscular Hemoglobin 31.5 pg (26-34); Mean Corpuscular Volume 98.2 fl (80-100); Mean Platelet Volume 10.1 fl (7.4-10.4); Monocytes Absolute Auto 0.6 K/mm3 (0.1-0.6); Monocytes Percent Auto 15.4 % (2.6-8.5); Neutrophils Absolute Auto 1.5 K/mm3 (1.3-6.7); Neutrophils Percent Auto 43.3 % (45.5-73.1); Platelet Count Result 110 k/mm3 (150-375); Red Blood Count 3.97 M/mm3 (4.2-5.4); Red Cell Distribution Width 13.1 % (11.5-14.5); White Blood Count 3.6 K/mm3 (4.5-10.0)
[2024-02-11] MEDS: lisinopriL 10 MG TABLET PO (08:27)
[2024-02-11] MEDS: ATORVASTATIN 40 MG TABLET PO (08:27)
[2024-02-11] MEDS: ASPIRIN 81 MG ENTERIC TABLET PO (08:27)
[2024-02-11] MEDS: amLODIPine BESYLATE 2.5 MG TABLET PO (08:27)
--- NOTE | 2024-02-11 08:29 | PM.CNCAR ---
Assessment and Plan Assessment and plan (1) Elevated troponin: Code(s): R79.89 - Other specified abnormal findings of blood chemistry Status: Acute Assessment and Plan: In regards to elevated troponins, patient presented to hospital with nausea, vomiting, inability to keep anything by mouth. She did have dehydration and hypokalemia on admission. Denied ischemic symptoms. Troponins were minimally elevated and trended down. EKG did show sinus tachycardia with ST depression lateral leads. -suspect demand ischemia from dehydration, nausea and vomiting. She has an underlying murmur consistent with severe . -obtain echocardiogram. -arrange for follow-up as an outpatient. (2) Heart murmur: Onset Date: ~02/11/24 Code(s): R01.1 - Cardiac murmur, unspecified Status: Acute Assessment and Plan: She has a murmur consistent with severe aortic stenosis. Obtain echocardiogram. -will arrange for follow-up with her for consideration for TAVR if proven to have severe . (3) Essential (primary) hypertension: Onset Date: ~02/11/24 Code(s): I10 - Essential (primary) hypertension Status: Acute Assessment and Plan: Blood pressures are slightly elevated. Continue lisinopril. Continue amlodipine. If blood pressures remain elevated consider increasing amlodipine from 2.5-5 mg daily. (4) Nausea & vomiting: Code(s): R11.2 - Nausea with vomiting, unspecified Status: Acute Assessment and Plan: Likely viral illness. (5) Thrombocytopenia: Code(s): D69.6 - Thrombocytopenia, unspecified Status: Acute Assessment and Plan: Platelet count 110. Abdominal images suggesting splenorenal collaterals suggestive of portal hypertension on the CT scan did not suggest that there is liver cirrhosis History of Present Illness History of Present Illness Consult date/time: Date of service 02/11/24 08:29 Requesting physician: Lissy King PA-C Consult reason: Other (Elevated troponins) Reason For Visit: Nausea vomiting, Elevated troponin Narrative: This is a 83-year-old female with history of hypertension, hyperlipidemia. She presents to the hospital for evaluation for vomiting. Started night having lower abdominal pain, nausea, vomiting. Had chicken salad for dinner.. Associated with headache, body aches, chills, and subjective fever. Next day she felt very weak, unsteady on her feet, nausea and vomiting and not able to keep anything in her mouth. She denied chest pain, shortness of breath, palpitations or syncope. No events on telemetry In the ED: Vital signs were stable on arrival. Labs are significant for a platelet count of 113, potassium 2.9, BUN 28, creatinine 0.80, lactic acid 1.0, AST 68, ALT 42, total CK 249, troponin 0.091. She tested negative for influenza, RSV, and COVID. CT of the abdomen and pelvis did not show any acute findings. CT scan abdomen and pelvis shows splenorenal collaterals suggestive of portal hypertension. But no acute findings. Initial EKG shows sinus tachycardia with ST depression lateral leads and repeat EKG showed that the sinus tachycardia resolved as well as the ST depression. Troponin 0.009, peaked at 0.28 and then now trended to 0.22. Review of Systems Constitutional: Constitutional: Reports chills, Denies fever(s) and Denies poor appetite Eyes: Eyes: Denies eye discharge, Denies loss of vision and Denies eye pain ENT: Denies dizziness, Denies epistaxis, Denies nasal congestion and Denies sore throat Cardiovascular: Cardiovascular: Denies chest pain, Denies syncope, Denies pedal edema, Denies leg edema, Denies palpitations, Denies dyspnea, Denies dyspnea on exertion and Denies orthopnea Respiratory: Respiratory: Denies cough, Denies dyspnea, Denies dyspnea on exertion and Denies wheezing Gastrointestinal: Gastrointestinal: Reports abdominal pain, Denies diarrhea, Reports nausea and Reports vomiting Genitourinary: Genitourinary: Denies hematuria, Denies genital lesions and Denies dysuria Musculoskeletal: Musculoskeletal: Denies arthralgias, Denies joint swelling and Denies numbness Integumentary/Breasts: Skin/Breast: Denies pruritus and Denies rash Neurologic: Denies dizziness, Denies syncope, Denies loss of vision and Denies numbness Psychiatric: Psychiatric: Denies anxiety and Denies depression Endocrine: Endocrine: Denies cold intolerance, Denies heat intolerance and Denies palpitations Hematologic/Lymphatic: Hematologic/Lymphatic: Denies easy bleeding and Denies easy bruising Allergic/Immunologic: Allergic/Immunologic: Denies urticaria and Denies wheezing PMFSH Past Medical History Medical History Arthritis Carotid atherosclerosis Diverticulosis Essential (primary) hypertension History of diverticulosis Hypercholesteremia Hyperlipidemia Vitamin D deficiency Surgical History Surgical History H/O adenoidectomy (~1952) H/O tubal ligation (~1974) History of arthroplasty of knee History of bilateral cataract extraction (~2017) History of bladder suspension procedure (~2003) History of carpal tunnel release Left 2007 Right 2010 History of dental surgery History of knee replacement (~2016) Left History of partial knee replacement (~2015) History of removal of retained hardware (~2016) Implant removal due to infection History of total right knee replacement (~12/06/22) Hx of joint replacement (~2011) Right Great Toe S/P meniscectomy (~2015) Medial Meniscectomy Status post trigger finger release (~2015) Left Middle Family History Family History Mother Family history of cardiovascular disease, Onset Age: 73 Family history of malignant neoplasm Family history of arthritis Father Family history of cardiovascular disease, Onset Age: 80 Grandparent Family history of cardiovascular disease, Onset Age: 88 Family history of arthritis, Onset Age: 73 Family history of malignant neoplasm, Onset Age: 62 Sibling Family history of cardiovascular disease Social History Social History Social History: Surrogate medical decision maker: Haily Wilcox, daughter. Code status: Full code. Smoking packs per day: 1.5 Smoking cigarettes per day: 30.0 Years smoked: 10 Smoking pack-years: 15.00 Smoking status: Former smoker Second hand tobacco smoke exposure: No Smoking end date: 04/10/99 Alcohol intake: never Substance use: never Substance use type: does not use Do You Feel Safe in your Home?: Yes Lack of Transportation: No Lack of Food: Never True Current Housing: I Have Housing Concerned About Future Housing: No Difficulty Paying Gas/Electric Bills: No Difficulty Paying for Meds: No Currently Unemployed: No Education: High School Diploma/GED Difficulty w/ Childcare or Family Care: No Spiritual care concerns: No Meds Home Medications and Allergies Home Medications Medication Instructions Recorded Confirmed Type lisinopril 10 mg tablet See Rx Instructions .Route 07/11/23 02/10/24 Rx .COMPLEX #90 tabs atorvastatin 40 mg tablet See Rx Instructions .Route 07/19/23 02/10/24 Rx .COMPLEX #90 tabs amlodipine 2.5 mg tablet 2.5 mg PO DAILY #90 tabs 10/05/23 02/10/24 Rx meloxicam 15 mg tablet See Rx Instructions .Route 12/07/23 02/10/24 Rx .COMPLEX #90 tabs lactobacillus combination no.8 3 3 cell PO DAILY 02/10/24 02/10/24 History billion cell capsule polyethylene glycol 3350 17 gram 17 g PO DAILY 02/10/24 02/10/24 History oral powder packet (Miralax) Allergies Allergy/AdvReac Type Severity Reaction Status Date / Time ceftriaxone Allergy Unknown HIVES/ITCHING/FLUSHED Verified 02/09/24 19:30 FEELING Cephalosporins Allergy Unknown HIVES/ITCHING/FLUSHED Verified 02/09/24 19:30 FEELING Vital Signs Vital Signs - 24 hr 02/10/24 10:51 02/10/24 13:24 02/10/24 15:26 Temperature 36.7 C Pulse Rate 68 66 68 Respiratory Rate 19 22 H 16 Blood Pressure 157/73 H 127/101 H 186/74 H Pulse Oximetry 97 97 97 Oxygen Delivery 02/10/24 15:27 02/10/24 16:00 02/10/24 16:00 Temperature Pulse Rate 68 Respiratory Rate Blood Pressure 155/70 H Pulse Oximetry Oxygen Delivery Room Air 02/10/24 18:00 02/10/24 17:00 02/10/24 19:12 Temperature Pulse Rate 71 Respiratory Rate Blood Pressure 154/75 H 163/79 H Pulse Oximetry Oxygen Delivery 02/10/24 19:12 02/10/24 20:00 02/10/24 19:55 Temperature 36.6 C Pulse Rate 65 Respiratory Rate 16 Blood Pressure 175/70 H 153/72 H 153/72 H Pulse Oximetry 95 Oxygen Delivery 02/10/24 20:00 02/10/24 20:05 02/10/24 20:00 Temperature Pulse Rate 69 Respiratory Rate Blood Pressure 147/73 H 154/84 H Pulse Oximetry Oxygen Delivery 02/10/24 20:00 02/10/24 23:59 02/10/24 22:00 Temperature 36.6 C Pulse Rate 68 67 Respiratory Rate 16 Blood Pressure 140/65 Pulse Oximetry 95 Oxygen Delivery Room Air 02/11/24 00:00 02/11/24 00:00 02/11/24 01:52 CDT Temperature Pulse Rate 69 63 Respiratory Rate Blood Pressure Pulse Oximetry Oxygen Delivery Room Air 02/11/24 03:33 02/11/24 04:00 02/11/24 04:00 Temperature 36.5 C Pulse Rate 68 60 Respiratory Rate 16 Blood Pressure 149/81 H Pulse Oximetry 97 Oxygen Delivery Room Air 02/11/24 06:00 02/11/24 08:18 Temperature 36.5 C Pulse Rate 61 63 Respiratory Rate 18 Blood Pressure 159/82 H Pulse Oximetry 95 Oxygen Delivery Exam Const: General: cooperative, comfortable, no acute distress, alert, awake and well nourished Nutritional Appearance: well nourished Orientation/consciousness: patient oriented x3 HENMT: Head: normal to inspection, normocephalic and atraumatic Ears: hearing grossly normal bilaterally Face/Nose/Sinus: Normal external nose present, Normal nares present, no nasal discharge noted, normal facial exam and No erythema Face and sinus: normal facial exam and no erythema Mouth: No drooling and No restricted motion Throat: uvula midline Eyes: General: appearance normal, both eyes and all related structures Alignment and Position: position normal Conjunctivae: conjunctivae normal Sclera: sclerae normal Direct Ophthalmoscopy: No photophobia Neck: Neck: normal visual inspection and no JVD Thyroid: thyroid normal Carotids: no bruits Lymphatic: lymphedema not noted Chest: Chest palpation & inspection: normal inspection of the chest and no tenderness Resp: Effort & Inspection: normal respiratory effort and no nasal flaring Auscultation: clear to auscultation bilaterally, no crackles, no rales and no wheezes Cardio: Jugular venous distension: no JVD Rate: regular rate Rhythm: regular rhythm Heart sounds: S1 normal heart sound present, S2 normal heart sound present, no gallops, Murmur heart sound present and no rubs Other: Based on my exam she has murmur consistent with severe aortic stenosis GI: Inspection: non-distended GI Palp: No abdominal tenderness and No Soft to palpation Auscultation: normal bowel sounds Rectal Exam: deferred : General: No no CVA tenderness Back/Spine/Pelvis: Back: No no CVA tenderness Cervical Spine: cervical ROM normal Skin: General skin exam: normal color and rashes and/or lesions noted Neuro: General: patient oriented x3 Cranial nerves: No CN's II-XII intact bilaterally Speech: normal speech Motor exam (neuro): no tremors Extrem: General: normal to inspection and pedal edema present Psych: Appearance: grossly normal and well kempt Speech and movement: Normal speech and movement present Affect: normal affect Results Labs and Meds 02/11/24 04:09 02/10/24 07:44 Lab results: Cardiac Enzymes 02/10/24 02/10/24 02/10/24 Range/Units 11:59 16:10 20:44 Troponin I 0.280 H* 0.246 H* 0.221 H* (0.000-0.034) ng/mL Coagulation 02/10/24 Range/Units 16:10 PT 13.3 (11.1-14.7) Seconds APTT 23.1 (22.3-36.8) Seconds CBC 02/10/24 02/11/24 Range/Units 16:10 04:09 WBC 5.6 3.6 L (4.5-10.0) K/mm3 RBC 3.86 L 3.97 L (4.2-5.4) M/mm3 Hgb 12.4 12.5 (12.0-15.0) g/dL Hct 37.6 39.0 (37.0-47.0) % Plt Count 102 L 110 L (150-375) k/mm3 Lymph # (Auto) 1.28 1.45 (0.9-3.2) K/mm3 [place] # (Auto) 0.7 H 0.6 (0.1-0.6) K/mm3 Eos # (Auto) 0.0 0.0 (0-0.3) K/mm3 Baso # (Auto) 0.0 0.0 (0.0-0.1) K/mm3 Intake and Output 02/11/24 02/11/24 02/11/24 00:59 07:59 15:59 Intake Total Output Total Balance Intake: Oral Output: Urine Other: # Unmeasured Voids Patient Weight 02/11/24 22:59 Weight 70.9 kg
[2024-02-11 08:51] LABS: Alanine Aminotransferase 41 U/L (6-35); Albumin Level 3.9 g/dL (3.5-5.1); Alkaline Phosphatase 61 U/L (38-126); Anion Gap 10 mmol/L (4-12); Aspartate Amino Transferase 56 U/L (14-36); Bilirubin,Total 0.6 mg/dL (0.2-1.3); Blood Urea Nitrogen 18 mg/dL (7-17); Calcium 9.6 mg/dL (8.4-10.2); Carbon Dioxide 25 mmol/L (22-30); Chloride 105 mmol/L (98-107); Estimated CRCL calculation 57 ml/min; Estimated Glomerular Filt Rate > 60; Glucose 156 mg/dL (65-110); Potassium 3.8 mmol/L (3.4-5.0); Sodium 140 mmol/L (137-145)
--- NOTE | 2024-02-11 11:41 | P.PNIM_ITS ---
Progress Note: A&P Assessment and Plan (1) Elevated troponin: Code(s): R79.89 - Other specified abnormal findings of blood chemistry Status: Acute Assessment and Plan: Incidentally troponin was drawn and was elevated and is trending upwards slightly. Initial EKG showed some ST depression in the lateral leads which improved with slowing of her rate. She has not had any chest pain but reports having increase in heartburn lately. Initially held on anticoagulation as her troponin have been flat and she is not having any chest pain. Troponin elevation was thought to be secondary to demand from tachycardia initially. Her platelets are also low however they have been so in the past and will be monitored. * Echocardiogram has been ordered and cardiology has been consulted for their input. * Troponin has peaked, elevation was thought to be secondary to demand * EKG prn for developing chest pain * Patient can transfer out of IMU to regular medicine floor without telemetry. She was remained normal sinus rhythm without much ectopy. * Likely will require outpatient TAVR evaluation as she has a grade 3 systolic murmur (2) Viral illness: Code(s): B34.9 - Viral infection, unspecified Status: Acute Assessment and Plan: The patient presented to the emergency department for evaluation of nausea and vomiting as detailed in HPI She likely has a viral illness and is feeling better with supportive care. CT of the abdomen pelvis did not show any acute findings. AST and ALT are a bit elevated but she does not have any focal findings on exam. * Improving with conservative treatment * Tolerating full liquids. Will advance regular diet. * Zofran as needed for nausea (3) Thrombocytopenia: Code(s): D69.6 - Thrombocytopenia, unspecified Status: Acute Assessment and Plan: Platelet count 113 on admission. * no overt signs of bleeding (4) Hypokalemia: Code(s): E87.6 - Hypokalemia Status: Acute Assessment and Plan: Resolved with 60 mEq of potassium. * K+ repeat is 5.0. * repeat BNP in the morning (5) Essential (primary) hypertension: Onset Date: ~02/11/24 Code(s): I10 - Essential (primary) hypertension Status: Acute Assessment and Plan: Blood pressures were reviewed and they are stable. Her home medications will be reviewed and resumed as appropriate. * Blood pressures 150-180's/70-100's * Resumed lisinopril and amlodipine * Blood pressure is slightly elevated. Stopping IV fluids. If he continues to be elevated we can increase her amlodipine to 5 mg per cardiology rec. * Monitor Subjective Date/time seen: 02/11/24 11:41 Interval history: No acute events overnight. She is tolerating a liquid diet with out recurrent n ausea, vomiting, or diarrhea. Her indigestion and is improved. She has no other complaints at this time. She is stable to discharge to medicine floor. Review of Systems Review of Systems: 12 systems were reviewed and are negativ e except for as per HPI. Exam Narrative: General: appears comfortable, in no acute distress Respiratory: breathing is unlabored with even chest rise/fall, lungs are clear without wheezing, rhonchi, and crackles Cardiovascular: Rate and rhythm regular, normal s1s2, systolic murmur grade 3 Abdomen: Soft, round, non-tender, active bowel sounds Extremities: No cyanosis, edema, clubbing. Pulses 2/2 Neuro: A&O x 4 Skin: Warm, dry, intact Objective Data Vital Signs Vital Signs: Vital Signs - 24 hr 02/10/24 13:24 02/10/24 15:26 02/10/24 15:27 Temperature 98.1 F Pulse Rate 66 68 Respiratory Rate 22 H 16 Blood Pressure 127/101 H 186/74 H 155/70 H Pulse Oximetry 97 97 Oxygen Delivery 02/10/24 16:00 02/10/24 16:00 02/10/24 18:00 Temperature Pulse Rate 68 71 Respiratory Rate Blood Pressure Pulse Oximetry Oxygen Delivery Room Air 02/10/24 17:00 02/10/24 19:12 02/10/24 19:12 Temperature Pulse Rate Respiratory Rate Blood Pressure 154/75 H 163/79 H 175/70 H Pulse Oximetry Oxygen Delivery 02/10/24 20:00 02/10/24 19:55 02/10/24 20:00 Temperature 97.8 F Pulse Rate 65 Respiratory Rate 16 Blood Pressure 153/72 H 153/72 H 147/73 H Pulse Oximetry 95 Oxygen Delivery 02/10/24 20:05 02/10/24 20:00 02/10/24 20:00 Temperature Pulse Rate 69 Respiratory Rate Blood Pressure 154/84 H Pulse Oximetry Oxygen Delivery Room Air 02/10/24 23:59 02/10/24 22:00 02/11/24 00:00 Temperature 97.9 F Pulse Rate 68 67 69 Respiratory Rate 16 Blood Pressure 140/65 Pulse Oximetry 95 Oxygen Delivery 02/11/24 00:00 02/11/24 01:52 CDT 02/11/24 03:33 Temperature Pulse Rate 63 Respiratory Rate Blood Pressure Pulse Oximetry Oxygen Delivery Room Air Room Air 02/11/24 04:00 02/11/24 04:00 02/11/24 06:00 Temperature 97.7 F Pulse Rate 68 60 61 Respiratory Rate 16 Blood Pressure 149/81 H Pulse Oximetry 97 Oxygen Delivery 02/11/24 08:18 Temperature 97.7 F Pulse Rate 63 Respiratory Rate 18 Blood Pressure 159/82 H Pulse Oximetry 95 Oxygen Delivery Intake/Output Intake/Output: Intake & Output 02/08/24 02/09/24 02/10/24 02/11/24 23:59 23:59 23:59 22:59 Intake Total 1000 1900.0 690 Output Total 450 Balance 1000 1900.0 240 Meds/Results Medications: Active Medications Generic Name Dose Route Start Last Admin Trade Name Freq PRN Reason Stop Dose Admin Acetaminophen 650 mg 02/10/24 06:24 02/11/24 03:29 Acetaminophen 325 Mg Tablet PO 650 mg Q6H PRN Administration Mild Pain (1-3) or Fever Amlodipine Besylate 2.5 mg 02/11/24 09:00 02/11/24 08:27 Amlodipine Besylate 2.5 Mg Tablet PO 2.5 mg DAILY RONNI Administration Aspirin 81 mg 02/10/24 16:55 02/11/24 08:27 Aspirin 81 Mg Enteric Tablet PO 81 mg QAM RONNI Administration Atorvastatin Calcium 40 mg 02/11/24 09:00 02/11/24 08:27 Atorvastatin 40 Mg Tablet PO 40 mg DAILY RONNI Administration Lisinopril 10 mg 02/11/24 09:00 02/11/24 08:27 Lisinopril 10 Mg Tablet PO 10 mg DAILY RONNI Administration Ondansetron HCl 4 mg 02/10/24 16:46 Ondansetron Inj 4 Mg/2 Ml Vial IV PUSH Q6H PRN Nausea And Vomiting Perflutren Lipid Microsphere 0 ml 02/10/24 06:24 Perflutren Lipid Microspheres 1.5 Ml Vial Diluted To 10 Ml Total Volume IV PUSH 02/13/24 06:24 ONCE PRN adequate visualization Protocol Polyethylene Glycol 17 gm 02/11/24 09:00 02/11/24 08:25 Polyethylene Glycol 3350 17 Gm Powd.Pack PO Not Given DAILY RONNI Radiology Results: ITS Impressions Abdomen/Pelvis CT 02/10/24 09:16 IMPRESSION: 1. No acute intra-abdominal/pelvic process. 2. Small sliding-type hiatal hernia. 3. Splenorenal collaterals suggesting portal venous hypertension. Labs Labs: Laboratory Results - last 24 hr 02/10/24 02/10/24 02/10/24 11:59 16:10 20:44 WBC 5.6 RBC 3.86 L Hgb 12.4 Hct 37.6 MCV 97.4 MCH 32.1 MCHC 33.0 RDW 13.2 Plt Count 102 L MPV 10.0 Immature Gran % (Auto) 0.4 Neut % (Auto) 64.0 Lymph % (Auto) 22.9 [place] % (Auto) 12.5 H Eos % (Auto) 0.0 Baso % (Auto) 0.2 Lymph # (Auto) 1.28 [place] # (Auto) 0.7 H Eos # (Auto) 0.0 Baso # (Auto) 0.0 Abs Immat Gran (auto) 0.02 Absolute Neuts (auto) 3.6 Absolute Nucleated RBC 0.000 Nucleated RBC % 0.0 % Immature Plt Fraction 2.6 PT 13.3 INR 1.0 APTT 23.1 Sodium Potassium Chloride Carbon Dioxide Anion Gap BUN Creatinine Estim Creat Clear Calc Estimated GFR Glucose Calcium Total Bilirubin AST ALT Alkaline Phosphatase Troponin I 0.280 H* 0.246 H* 0.221 H* Total Protein Albumin 02/11/24 02/11/24 04:09 08:33 WBC 3.6 L RBC 3.97 L Hgb 12.5 Hct 39.0 MCV 98.2 MCH 31.5 MCHC 32.1 RDW 13.1 Plt Count 110 L MPV 10.1 Immature Gran % (Auto) 0.3 Neut % (Auto) 43.3 L Lymph % (Auto) 40.7 [place] % (Auto) 15.4 H Eos % (Auto) 0.0 Baso % (Auto) 0.3 Lymph # (Auto) 1.45 [place] # (Auto) 0.6 Eos # (Auto) 0.0 Baso # (Auto) 0.0 Abs Immat Gran (auto) 0.01 Absolute Neuts (auto) 1.5 Absolute Nucleated RBC 0.000 Nucleated RBC % 0.0 % Immature Plt Fraction 3.2 PT INR APTT Sodium 140 Potassium 3.8 Chloride 105 Carbon Dioxide 25 Anion Gap 10 BUN 18 H Creatinine 0.60 L Estim Creat Clear Calc 57 Estimated GFR > 60 Glucose 156 H Calcium 9.6 Total Bilirubin 0.6 AST 56 H ALT 41 H Alkaline Phosphatase 61 Troponin I Total Protein 8.0 Albumin 3.9 Quality VTE Prophylaxis VTE prophylaxis: mechanical ordered and pharmacologic ordered
--- NOTE | 2024-02-11 14:15 | PC.NURSE ---
RN assumed care
--- NOTE | 2024-02-11 14:19 | PC.NURSE ---
This patient, Linsey Whitney, was transferred to [facility] on 02/11/24 at 1415. Personal belongings sent with patient. Report given to Jessie ANN. Appropriate documentation sent with patient.
--- NOTE | 2024-02-11 15:08 | PC.NURSE ---
This patient, Linsey Whitney, was received from [ IMU] on 02/11/24 at 1414. Patient/family oriented to unit policies and routines
[2024-02-12 06:00] VITALS: BP 136/85; PULSE 71; RESP 14; TEMP 36.3; O2SAT 95
--- NOTE | 2024-02-12 06:24 | ECHO_ITS ---
Patient Info Name: Linsey Whitney Age: 83 years : 1940 Gender: Female Ht: 63 in Wt: 150 lbs BSA: 1.76 m2 HR: 67 bpm BP: 135 / 87 mmHg Heart Rhythm: Sinus Rhythm Technical Quality: Good Exam Date: 02/12/2024 10:52 AM Exam Location: Echo Lab Patient Status: Inpatient Admit Date: 02/10/2024 Staff Ordering Physician: Lissy King PA-C Camera Operator: Sebas Tolentino RDCS Attending Provider: Hunter Bradley MD Referring Physician: Fernando AARON; Exam Type: CA echo doppler color flow Study Info Indications - elevated troponin Complete two-dimensional, color flow and Doppler transthoracic echocardiogram is performed. Summary 1. Complete two-dimensional, color flow and Doppler transthoracic echocardiogram is performed. 2. The left ventricular is size is normal. There is severe concentric left ventricular hypertrophy. The left ventricular systolic function is normal. The LVEF is visually estimated to be 60-65%. 3. The aortic valve is trileaflet and heavily calcified. There is moderate aortic stenosis with peak velocity of 3 m/sec, mean gradient of 25 mm Hg, and aortic valve area of 1.5 cm2. There is trace aortic regurgitation. Left Ventricle The left ventricular is size is normal. There is severe concentric left ventricular hypertrophy. The left ventricular systolic function is normal. The LVEF is visually estimated to be 60-65%. Right Ventricle The right ventricle is normal in size and systolic function. Left Atria The left atrium is normal in size. Right Atria The right atrium is normal in size. Aortic Valve The aortic valve is trileaflet and heavily calcified. There is moderate aortic stenosis with peak velocity of 3 m/sec, mean gradient of 25 mm Hg, and aortic valve area of 1.5 cm2. There is trace aortic regurgitation. Pulmonic Valve The pulmonic valve is not well visualized. There is no color Doppler evidence of pulmonic valve regurgitation. Mitral Valve The mitral valve is sclerotic. There is evidence of posterior cord or posterior mitral annular calcification. There is trace mitral regurgitation. Tricuspid Valve The tricuspid valve is grossly normal. There is trace tricuspid regurgitation. Pericardium/Pleural Pericardium is normal in appearance with no evidence for significant pericardial effusion. Inferior Vena Cava Inferior vena cava is not well visualized. Aorta The aortic root at the level of the sinus of Valsalva measures 3.3 cm in diameter. Left Ventricular Outflow Tract Name Value Normal LVOT 2D LVOT Diameter 2.0 cm LVOT Doppler LVOT Peak Gradient 8 mmHg LVOT Mean Gradient 5 mmHg LVOT VTI 30 cm LVOT VTI/AV VTI Ratio 0.5 LVOT Stroke Volume 98 ml LVOT CO 7.4 l/min LVOT CI 4.3 l/min/m2 Mitral Valve Name Value Normal MV Doppler MV Peak Gradient 5 mmHg MV Mean Gradient 1 mmHg MV Decel Moore 267 cm/s2 MV PHT 85 ms MV Area (PHT) 2.6 cm2 4.0-5.0 MV Area (Cont Eq VTI) 3.3 cm2 MV Regurgitation Doppler MR Peak Gradient 7 mmHg MV Diastolic Function MV E Peak Velocity 78 cm/s MV A Peak Velocity 107 cm/s MV E/A 0.7 MV Decel Time 292 ms MV Annular TDI MV E/e' (Septal) 22.7 <=8.0 MV E/e' (Lateral) 10.5 <=8.0 MV E/e' (Average) 16.6 Tricuspid Valve Name Value Normal TV Regurgitation Doppler TR Peak Velocity 224 cm/s TR Peak Gradient 12 mmHg Estimated PAP/RSVP RA Pressure 10 mmHg <=5 PA Systolic Pressure 30 mmHg <36 RV Systolic Pressure 22 mmHg <36 Aortic Valve Name Value Normal AV Doppler AV Peak Velocity 302 cm/s AV Peak Gradient 36 mmHg AV Mean Gradient 25 mmHg AV VTI 64 cm AV Area (Cont Eq VTI) 1.5 cm2 >=3.0 AV Area (Cont Eq Ryan) 1.5 cm2 AV Regurgitation 2D LVOT Area 3.3 cm2 Ventricles Name Value Normal LV Dimensions 2D/MM IVS Diastolic Thickness (2D) 1.4 cm 0.6-1.0 LVID Diastole (2D) 4.2 cm 3.8-5.2 LVIW Diastolic Thickness (2D) 1.3 cm 0.6-0.9 LVID Systole (2D) 2.8 cm 2.2-3.5 LVOT Diameter 2.0 cm LV Mass (2D Cubed) 218.35 g 67.00-162.00 LV Mass Index (2D Cubed) 124 g/m2 43-95 Relative Wall Thickness (2D) 0.64 LV Fractional Shortening/Ejection Fraction 2D/MM LV Fractional Shortening (2D) 34 % 27-45 LV EF (2D Teicholz) 63 % 54-74 LV Diastolic Volume (4C MOD) 73 ml LV EF (4C MOD) 66 % LV Diastolic Volume (2C MOD) 72 ml LV EF (2C MOD) 66 % LV Diastolic Volume (BP MOD) 80 ml 46-106 LV Diastolic Volume Index (BP MOD) 46 ml/m2 29-61 LV Systolic Volume (BP MOD) 26 ml 14-42 LV Systolic Volume Index (BP MOD) 15 ml/m2 8-24 LV EF (BP MOD) 68 % 54-74 LV Diastolic Length (4C) 8.4 cm LV Systolic Length (4C) 5.9 cm LV Stroke Volume (4C MOD) 48 ml Atria Name Value Normal LA Dimensions LA Volume (4C A-L) 22 ml LA Volume (BP A-L) 26 ml RA Dimensions RA Area (4C) 9.6 cm2 <=18.0 Report Signatures
--- NOTE | 2024-02-12 07:31 | P.DS_ITS ---
DS: Admitting Diagnosis Discharge Date 02/11 Admitting Diagnosis Vomiting, diarrhea DS: Discharge Diagnosis Discharge Diagnosis (1) Elevated troponin: Code(s): R79.89 - Other specified abnormal findings of blood chemistry Status: Acute Assessment and Plan: Incidentally troponin was drawn and was elevated and is trending upwards slightly. Initial EKG showed some ST depression in the lateral leads which improved with slowing of her rate. She has not had any chest pain but reports chu ving increase in heartburn lately. Initially held on anticoagulation as her troponin have been flat and she is not having any chest pain. Troponin elevation was thought to be secondary to demand from tachycardia initially. Her platelets are also low however they have been so in the past and will be monitored. * Echocardiogram has been ordered and cardiology has been consulted for their input. * Troponin has peaked, elevation was thought to be secondary to demand * EKG prn for developing chest pain * Patient can transfer out of IMU to regular medicine floor without telemetry. She was remained normal sinus rhythm without much ectopy. * Likely will require outpatient TAVR evaluation as she has a grade 3 systolic murmur (2) Viral illness: Code(s): B34.9 - Viral infection, unspecified Status: Acute Assessment and Plan: The patient presented to the emergency department for evaluation of nausea and vomiting as detailed in HPI She likely has a viral illness and is feeling better with supportive care. CT of the abdomen pelvis did not show any acute findings. AST and ALT are a bit elevated but she does not have any focal findings on exam. * Improving with conservative treatment * Tolerating full liquids. Will advance regular diet. * Zofran as needed for nausea (3) Thrombocytopenia: Code(s): D69.6 - Thrombocytopenia, unspecified Status: Acute Assessment and Plan: Platelet count 113 on admission. * no overt signs of bleeding (4) Hypokalemia: Code(s): E87.6 - Hypokalemia Status: Acute Assessment and Plan: Resolved with 60 mEq of potassium. * K+ repeat is 5.0. * repeat BNP in the morning (5) Essential (primary) hypertension: Onset Date: ~02/11/24 Code(s): I10 - Essential (primary) hypertension Status: Acute Assessment and Plan: Blood pressures were reviewed and they are stable. Her home medications will be reviewed and resumed as appropriate. * Blood pressures 150-180's/70-100's * Resumed lisinopril and amlodipine * Blood pressure is slightly elevated. Stopping IV fluids. If he continues to be elevated we can increase her amlodipine to 5 mg per cardiology rec. * Monitor DS: Summary Hospital Course Reason for hospitalization: viral enteritis, elevated troponin, elevated LFTs, chest pain rule out Hospital Course: This is a very pleasant 83-year-old female with hypertension dyslipidemia presented to the emergency department via private vehicle for evaluation of vomiting. The patient provides the following history. at about 22:30 she began to feel sick to her stomach and was having a cramping discomfort in the lower abdomen. She reports having multiple episodes of non bloody and non bilious emesis followed by dry heaves. She had chicken salad with nuts for dinner and she was initially concerned that she had diverticulitis. The abdominal pain seemed to improve however she continued to have the vomiting and dry heaves. Additionally she reports associated headache, body aches, chills, and subjective fever. She has been having more heartburn than usual and endorses quite a bit of belching. Today she was feeling quite weak and unsteady on her feet with walking. She continues to have nausea and vomits any time she tries to eat or drink. She denies sick contacts. She also denies sinus congestion, sore throat, productive cough, chest pain, pleuritic pain, palpitations, current abdominal pain, diarrhea, dysuria, syncope, and near-syncope. In the ED: Vital signs were stable on arrival. Labs are significant for a platelet count of 113, potassium 2.9, BUN 28, creatinine 0.80, lactic acid 1.0, AST 68, ALT 42, total CK 249, troponin 0.091. She tested negative for influenza, RSV, and COVID. CT of the abdomen and pelvis did not show any acute findings. EKG showed sinus tachycardia on arrival with some ST depressions in the lateral leads. She was given aspirin 324 mg x 1 for the elevated troponin. She was also given a L of normal saline, 40 mEq of potassium chloride, and ondansetron with improvement in her symptoms. She is being admitted however for the elevated troponin. patient was admitted to the hospital and Cardiology was consulted. Her troponins had continue elevation but remained flat. Troponin elevation was thought to be secondary to demand from nausea, vomiting, and elevated heart rate on admission. Her nausea, diarrhea, and vomiting improved with IV fluids. She was able to tolerate a clear liquid diet and advanced to regular diet. an echocardiogram was ordered as she has a grade 3 systolic murmur. She is being asked to follow-up with Dr. Stephen as an outpatient for likely TAVR. We did increase her amlodipine at night to 10 mg daily. Time Spent with Patient Time attestation: Total time spent providing and/or coordinating discharge services:68 Exam Narrative: General: appears comfortable, in no acute distress Respiratory: breathing is unlabored with even chest rise/fall, lungs are clear without wheezing, rhonchi, and crackles Cardiovascular: Rate and rhythm regular, normal s1s2, systolic murmur grade 3 Abdomen: Soft, round, non-tender, active bowel sounds Extremities: No cyanosis, edema, clubbing. Pulses 2/2 Neuro: A&O x 4 Skin: Warm, dry, intact DS: Data Data Completed and Pending Labs on day of discharge: Labs from last 24 hours 02/11/24 08:33 Sodium 140 Potassium 3.8 Chloride 105 Carbon Dioxide 25 Anion Gap 10 BUN 18 H Creatinine 0.60 L Estim Creat Clear Calc 57 Estimated GFR > 60 Glucose 156 H Calcium 9.6 Total Bilirubin 0.6 AST 56 H ALT 41 H Alkaline Phosphatase 61 Total Protein 8.0 Albumin 3.9 Discharge Plan Discharge Attending physician on discharge: Hunter Bradley Consulting providers: Zayda Stephen Discharging Clinician: Leonela Duran Patient Disposition: Home, Self-Care Activity: august shower Diet: heart healthy Discharge Instructions: You were admitted with nausea and vomiting as well as diarrhea. Your white blood cell count was normal and your symptoms were thought to be secondary to a viral infection. Your symptoms have improved with IV fluids. You did have elevated troponin on admission without chest pain. Troponin elevation was thought to be from demand from your Vomiting and elevated heart rate. Cardiology saw you in consult and recommended an echocardiogram is you do have a grade 3 systolic murmur. You blood pressures have been elevated slightly during this admission and Dr Stephen has recommended increasing your amlodipine to 10 mg daily. Please continue with slow position changes and staying hydrated. If you notice you are dizzy or having low blood pressure (systolic less than 100 mm hg) please hold your blood pressure medication and call your provider for further instructions. Please monitor for fever greater than 101.4, chest pain, shortness a breath, abdominal pain, nausea, or vomiting. you should follow-up with your primary care provider in the next 1 week. Please call their office to schedule an appointment. You should also follow up with Dr Stephen, decker operator. Please contact his office to schedule a follow up appointment. You likely will need a TAVR (aortic valve replacement). Patient Instructions: Antibiotic Form, Dehydration (DC), Acute Nausea and Vomiting (DC), Heart Murmur (ED) Stand Alone Forms: General Discharge Information Follow-up/Referrals: Zayda Stephen MD [Physician] - (Our office will call you with appointment details) Juan A Ralph MD [Primary Care Provider] - Discharge Medications: New amlodipine 2.5 mg Tablet 5 mg PO DAILY Qty: 180 0RF aspirin 81 mg Tablet,Delayed Release (Dr/Ec) 81 mg PO QAM Qty: 30 0RF Continued polyethylene glycol 3350 [Miralax] 17 gram Powder In Packet 17 g PO DAILY Adult Probiotic 3 billion cell Capsule 3 cell PO DAILY Refresh Optive bottle See Rx Instructions .ROUTE .COMPLEX PRN (Reason: Dry Eyes) Rx Instructions: 1 to 2 drops per eye lisinopril 10 mg tablet See Rx Instructions .ROUTE .COMPLEX Qty: 90 1RF Dose Instruction: TAKE 1 TABLET BY MOUTH EVERY DAY Rx Instructions: TAKE 1 TABLET BY MOUTH EVERY DAY atorvastatin 40 mg tablet See Rx Instructions .ROUTE .COMPLEX Qty: 90 1RF Dose Instruction: TAKE 1 TABLET BY MOUTH EVERY DAY Rx Instructions: TAKE 1 TABLET BY MOUTH EVERY DAY meloxicam 15 mg tablet See Rx Instructions .ROUTE .COMPLEX Qty: 90 1RF Dose Instruction: TAKE 1 TABLET BY MOUTH DAILY Rx Instructions: TAKE 1 TABLET BY MOUTH DAILY Discontinued amlodipine 2.5 mg tablet 2.5 mg PO DAILY Qty: 90 1RF Date of admission: 02/10/24 08:09 Primary Care Provider: Juan A Ralph Admitting Provider: Hunter Bradley Attending physician on admission: Hunter Bradley Condition: Improved Quality VTE Prophylaxis VTE prophylaxis: mechanical ordered and pharmacologic ordered Hospitalist MIPS Heart Failure (Exclusion) Patient has history of Heart Transplant or Left Ventricular Assistive Device?: No IF YES, STOP HERE Heart Failure (Qualifier) Patient has current or prior documentation of LVEF less than or equal to 40%, or mod/servere depressed LVSF?: No IF NO, STOP HERE
[2024-02-12 07:50] LABS: Hematocrit 42.8 % (37.0-47.0); Hemoglobin 13.9 g/dL (12.0-15.0); Immature Platelet Fraction Pct 3.1 % (0.9-11.2); Mean Corpuscular HGB Conc 32.5 g/dl (32-36); Mean Corpuscular Hemoglobin 31.8 pg (26-34); Mean Corpuscular Volume 97.9 fl (80-100); Mean Platelet Volume 9.8 fl (7.4-10.4); Platelet Count Result 137 k/mm3 (150-375); Red Blood Count 4.37 M/mm3 (4.2-5.4); Red Cell Distribution Width 12.8 % (11.5-14.5); White Blood Count 3.2 K/mm3 (4.5-10.0)
[2024-02-12 07:59] VITALS: BP 145/74; PULSE 68; RESP 16; TEMP 35.9; O2SAT 96
[2024-02-12 08:00] VITALS: BP 145/82; BP 151/78
[2024-02-12 08:01] LABS: Anion Gap 11 mmol/L (4-12); Blood Urea Nitrogen 17 mg/dL (7-17); Calcium 9.8 mg/dL (8.4-10.2); Carbon Dioxide 27 mmol/L (22-30); Chloride 104 mmol/L (98-107); Estimated CRCL calculation 57 ml/min; Estimated Glomerular Filt Rate > 60; Glucose 108 mg/dL (65-110); Potassium 4.1 mmol/L (3.4-5.0); Sodium 142 mmol/L (137-145)
[2024-02-12] MEDS: ARTIFICIAL TEARS OPHTH SOLN 15 ML BOTTLE 1 DROP EACH EYE (08:43)
[2024-02-12] MEDS: ASPIRIN 81 MG ENTERIC TABLET PO (08:43)
[2024-02-12] MEDS: amLODIPine BESYLATE 2.5 MG TABLET PO (08:43)
[2024-02-12] MEDS: ATORVASTATIN 40 MG TABLET PO (08:43)
[2024-02-12] MEDS: polyethylene glycoL 3350 17 GM POWD.PACK PO (08:44)
[2024-02-12] MEDS: lisinopriL 10 MG TABLET PO (08:44)
== END 2024-02-12 12:23 | disposition home or self-care (01) | DRG 866 ==
LOC: ANHED 02-10 02:39 → ANHIMU 02-10 04:16 → ANH3MEDSUR 02-11 14:22
PROVIDERS: Physician Assistant; Admitting Provider Internal Medicine; Emergency Provider Emergency Medicine; PCP Family Medicine; Visit Provider Nurse Practitioner Acute Care
DX: B34.9 Viral infection, unspecified (principal); R11.2 Nausea with vomiting, unspecified; I65.29 Occlusion and stenosis of unspecified carotid artery; I10 Essential (primary) hypertension; E78.00 Pure hypercholesterolemia, unspecified; E55.9 Vitamin D deficiency, unspecified; E87.6 Hypokalemia; D69.6 Thrombocytopenia, unspecified; K57.30 Diverticulosis of large intestine without perforation or abscess without bleeding; R79.89 Other specified abnormal findings of blood chemistry; R01.1 Cardiac murmur, unspecified; M19.90 Unspecified osteoarthritis, unspecified site; Z20.822 Contact with and (suspected) exposure to COVID-19; Z96.653 Presence of artificial knee joint, bilateral; Z87.891 Personal history of nicotine dependence
CPT/HCPCS: 36415; 74177; 80048; 80053; 80076; 81001; 82550; 83605; 83690; 83735; 84484; 85025; 85027; 85055; 85610; 85730; 87086; 87637; 93005; 93306; 96361; 96365; 96366; 99285; A9270; G0378; J2470; J3480; J7030; Q9967

== ENCOUNTER 2025-03-15 10:53 | Emergency (ER) | payer MEDICARE, BC, SELFPAY ==
--- OUTSIDE RECORDS SUMMARY | 2025-03-15 11:00 | XMS_ITS | Clinical Summary ---
Author Organization [facility] Address [address] [place] [id number] Care Team Providers Care Brim Setter Name Role Phone Juan A Ralph MD Primary Care Provider [phone] Allergies Active Allergy Reactions Criticality Noted Date Comments Cefazolin Hives Medium 04/21/2017 Ceftriaxone Swelling Medium 04/21/2017 Cephalosporins Itching,Rash,Redness Medium 08/01/2016 Medications aspirin (ASPIR-LOW) 81 mg tablet take 1 tablet by oral route every day 0 0 4 Active lisinopriL (PRINIVIL,ZESTRI L) 10 mg tablet Take 1 tablet (10 mg total) by mouth daily Active atorvastatin (LIPITOR) 40 mg tablet TK 1 T PO QD 0 Active amLODIPine (NORVASC) 2.5 mg tablet Take 2 tablets (5 mg total) by mouth daily 4 Active meloxicam (MOBIC) 15 mg tablet Take 1 tablet (15 mg total) by mouth daily Active polyethylene glycol (MIRALAX) 17 gram/dose bulk powder Take 17 g by mouth daily Active carboxymethylcel lulose (REFRESH PLUS) 0.5 % dropperette Administer 1 drop into both eyes 2 (two) times a day as needed Active L. gasseri-B. bifidum-B longum 1.5 billion cell capsule Take 8.3 capsules by mouth daily Active metoprolol XL (TOPROL-XL) 25 mg extended release tablet Take 1 tablet (25 mg total) by mouth daily 4 Active nitroglycerin (NITROSTAT) 0.4 mg SL tablet Take 1 tablet (0.4 mg total) by mouth every 5 (five) minutes as needed 4 Active cycloSPORINE (RESTASIS) 0.05 % ophthalmic emulsion 1 drop 2 (two) times a day 5 Active albuterol HFA (PROVENTIL HFA,VENTOLIN HFA,PROAIR HFA) 90 mcg/actuation inhaler Inhale 2 puffs every 6 (six) hours as needed for wheezing 1 each 5 08/12/19 26 Active Active Problems Problem Noted Date Diagnosed Date Abnormal stress test 03/11/2024 Other chest pain 02/15/2024 Essential hypertension 02/15/2024 Nonrheumatic aortic valve stenosis 02/15/2024 Abnormal EKG 02/15/2024 Family history of colon cancer 10/02/2019 Assessment & Plan (10/02/2019 7:33 PM CDT): Family history of colon cancer in the patient's mother. Patient is high risk for colon cancer. She is in relatively very good health. Colonoscopy is scheduled. Diverticulitis 06/24/2019 Assessment & Plan (10/02/2019 7:34 PM CDT): Patient had acute diverticulitis few months ago. She required hospitalization for intravenous antibiotics. This was her 2nd episode in a few years. Colonoscopy is recommended and scheduled. The patient was informed about the risks, benefits and alternatives to colonoscopy. The risks including but not limited to perforation, bleeding, infection and anesthetic complications with discussed with the patient and the patient verbalized full understanding. Lower abdominal pain 06/24/2019 Nausea and vomiting 06/24/2019 Fever 06/24/2019 Hyperlipidemia 01/20/2014 Overview (07/14/2016): Hyperlipidemia Immunizations Immunization Administration Dates Next Due Influenza, Quadrivalent, Split, Intramuscular Influenza, Trivalent, IM (MDV) 01/20/2014 Pneumococcal Conjugate PCV 13 02/11/2015 Pneumococcal Polysaccharide PPV23 04/10/2004 Surgical History Surgery Date Site/Laterality Comments TONSILLECTOMY Tonsillectomy TUBAL LIGATION Bilateral tubal ligation OTHER SURGICAL HISTORY Left Arthroscopic Menisectomy BLADDER SURGERY COLONOSCOPY last colonoscopy 2016 TOTAL KNEE ARTHROPLASTY Bilateral Medical History Medical History Date Comments Hyperlipidemia Hyperlipidemia Essential hypertension 02/15/2024 Abnormal stress test Skin cancer Family History Medical History Relation Name Comments Heart attack Father Cancer Mother Diabetes Sister Relation Name Status Comments Father Mother Sister Social History Tobacco Use Types Packs/Day Years Used Date Smoking Tobacco: Former Cigarettes Q uit: 2000 Smokeless Tobacco: Never Tobacco Cessation:Counseling Given: Not Answered Alcohol Use Standard Drinks/Week Comments Not Currently 0 (1 standard drink = 0.6 oz pur e alcohol) AUDIT-C Answer Date Recorded Q1: How often do you have a drink containing alcohol? Never 03/20/2024 Q2: How many drinks containi ng alcohol do you have on a typical day when you are drinking? Patient does not drink Q3: How often do you have si x or more drinks on one occasion? Never 03/20/2024 PHQ-2 Answer Date Recorded PHQ-2 Total Score (If total score is 3 or more points, staff should administer the PHQ-9) 0 10/02/2019 Personal Safety Answer Date Recorded Have you ever been in or are you currently in a harmful physical or emotional relationship or is someone making you feel afraid or unsafe? Denies 03/20/2024 Comments No Sex and Gender Information Value Date Recorded Sex Assigned at Not on file Legal Sex Female 11:59 PM STATISTICS TEACHER Gender Identity Not on file Sexual Orientation Straight 09/25/2019 8: 38 AM CDT Last Filed Vital Signs Vital Sign Reading Time Taken Comments Blood Pressure 142/78 08/19/2024 7:59 AM CDT Pulse 62 08/19/2024 7:59 AM CDT Temperature 36.5 C (97.7 F) 08/11/2024 9:58 AM CDT Respiratory Rate 18 08/11/2024 9:58 AM CDT Oxygen Saturation 98% 08/19/2024 7:59 AM CDT Inhaled Oxygen Concentration - - Weight 66.8 kg (147 lb 3.2 oz) 08/19/2024 7:59 A M CDT Height 160 cm (5' 3) 08/19/2024 7:59 AM CDT Body Mass Index 26.08 08/19/2024 7:59 AM CDT Plan of Treatment Health Maintenance Due Date Last Done Comments DTaP/Tdap/Td Vaccine (1 - Tdap) 02/23/1951 Hepatitis B Screening 02/23/1958 Zoster Vaccine (1 of 2) 02/23/1990 Well Visit 65+ 02/23/2005 Osteoporosis Screening-Bone Density Scan 2017 2015 Pneumococcal vaccine 65+ (3 of 3 - PCV20 or PCV21) 02/12/2020 02/11/2015, 04/10/2004, 01/08/2001 Depression Screening 10/01/2020 10/02/2019 Influenza Vaccine (#1) 2024 0, 01/17/2018, 01/27/2017, Additional history exists Fall Risk Assessment 03/20/2025 03/20/2024, 02/15/20 Medical Devices Implanted Type Area Food Service Associate Device Identifier Shelf Expiration Date Model / Serial / Lot Total Knee Bilateral: Knee Big Toe Joint Right: First Toe [employer] Device Closure Vascade Od5 Fr Femoral Artery [id number] - [id number] Implanted:Qty: 1 on 03/20/2024 by Zayda Stephen MD at [facility] [employer] 11/05/2025 [id number] / / [id number] Procedures Procedure Name Priority Date/Time Associated Diagnosis Comments DEXA AXIAL SKELETON BONE DENSITY 1 OR MORE SITES Routine 2015 2:55 PM STATISTICS TEACHER from Last 3 Months or Most Recently Relevant to Health Maintenance Results * Dexa Axial Skeleton Bone Density 1 or 2 Site (2015 2:55 PM STATISTICS TEACHER) Anatomical Region Laterality Modality Body N/A Radiographic Emerald ging 2015 2:55 PM STATISTICS TEACHER Narrative 02/25/2015 11:28 AM STATISTICS TEACHER DEXA Bone Density Axial Acc#: [id number] DATE OF EXAM: 2015 CLINICAL HISTORY: Post menopausal osteoporosis assessment. RESULT: DXA LEFT HIP RESULTS SUMMARY: BMD (g/cm'b2) T-score Z-score Neck 0.671 -1.6 0.5 Total 0.737 -1.7 0.1 DXA L-SPINE RESULTS SUMMARY: BMD (g/cm'b2) T-score Z-score L1 0.964 -0.2 1.9 L2 0.982 -0.4 2.1 L3 0.961 -1.1 1.4 L4 0.956 -1.0 1.6 Total 0.966 -0.7 1.7 IMPRESSION: 1. NORMAL T-SCORE OF THE LUMBAR SPINE WITH TOTAL T-SCORE CALCULATED AT -0.7. 2. OSTEOPENIA OF THE HIP WITH FEMORAL NECK T-SCORE -1.6 AND TOTAL T-SCORE -1.7. COMMENT: W.H.O. defines the T-score of between -1 and -2.5 as osteopenia, the level at which there may be an increased risk of developing osteoporosis and fractures in the future. Osteoporosis is defined as T-score lower than -2.5 (significantly increased risk of fracture due to osteoporosis). T-score is a comparison to peak bone mineral density of young adult reference population. Z-score is a comparison to bone mineral density of sex and age group population. Interpreting Physician: CHRISTINE FLORES M.D. Read on: 2015 3:33P Transcribed by: guy On: Feb 25 2015 11:03A Approved Electronically by: CHRISTINE FLORES M.D. on: Feb 25 2015 11:28A Attending: DR JAKE WHITEHEAD Requesting: DR JAKE WHITEHEAD Requesting Attending Fax: -- Attending ID: [id number] Requesting ID: [id number] Report To 1 ID: [id number] Report To 1 Name: DR JAKE WHITEHEAD Report To 1 FAX: -- NextGen Order #: Procedure Note Provider, MD Cathy - 08/02/2016 DEXA Bone Density Axial Acc#: [id number] DATE OF EXAM: 2015 CLINICAL HISTORY: Post menopausal osteoporosis assessment. RESULT: DXA LEFT HIP RESULTS SUMMARY: BMD (g/cm'b2) T-score Z-score Neck 0.671 -1.6 0.5 Total 0.737 -1.70.1 DXA L-SPINE RESULTS SUMMARY: BMD (g/cm'b2) T-score Z-score L1 0.964 -0.2 1.9 L2 0.982 -0.4 2.1 L30.961 -1.1 1.4 L4 0.956 -1.0 1.6 Total 0.966 -0.7 1.7 IMPRESSION: 1. NORMAL T-SCORE OF THE LUMBAR SPINE WITH TOTAL T-SCORE CALCULATED AT-0.7. 2. OSTEOPENIA OF THE HIP WITH FEMORAL NECK T-SCORE -1.6 AND TOTAL T-SCORE-1.7. COMMENT: W.H.O. defines the T-score of between -1 and -2.5 as osteopenia, thelevel at which there may be an increased risk of developing osteoporosisand fractures in the future. Osteoporosis is defined as T-score lowerthan -2.5 (significantly increased risk of fracture due to osteoporosis).T-score is a comparison to peak bone mineral density of young adultreference population. Z-score is a comparison to bone mineral density ofsex and age group population. Interpreting Physician: CHRISTINE FLORES M.D. Read on: 2015 3:33P Transcribed by: guy On: Feb 25 2015 11:03A Approved Electronically by: CHRISTINE FLORES M.D. 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
--- OUTSIDE RECORDS SUMMARY | 2025-03-15 11:00 | XMS_ITS | Clinical Summary ---
Author Organization [facility] Address [address] [place] [address] Care Team Providers Care Perishable Fruit Inspector Name Role Phone Unavailable Primary Care Provider Unavailabl e Source Comments [facility],non-owned Affiliates and Associated Physician Practices is amultiple site organization consisting of ambulatory clinics and hospital sitesin [place], [place], [place] and [place]. This disclosure is being madepursuant to the Care Everywhere program and may not contain all information available regarding this patient. Last updated 17.[facility] Devario Social History Tobacco Use Types Packs/Day Years Used Date Smoking Tobacco: Never Assessed Comments Unknown Sex and Gender Information Value Date Recorded Sex Assigned at Not on file Legal Sex Female 6:05 AM ECONOMICS TEACHER Gender Identity Not on file Sexual Orientation Not on file Plan of Treatment Health Maintenance Due Date Last Done Comments BONE DENSITY TESTING 1940 DTAP/TDAP/TD VACCINES (1 - Tdap) 02/23/1959 PNEUMOCOCCAL VACCINE 50+ (1 of 1 - PCV) 02/23/1990 ZOSTER VACCINE (1 of 2) 02/23/1990 Respiratory Syncytial Virus (RSV) Vaccine Pt: or over 60 yrs (1 - 1-dose 75+ series) 02/23/2015 DEPRESSION SCREENING 04/10/2024 COVID-19 VACCINE (1 - 2024-2 6 season) 2024 INFLUENZA VACCINE (#1) 2024 HEPATITIS B VACCINE Aged Out No longe r eligible based on patient's age to complete this topic HIB VACCINE Aged Out No longer eligi ble based on patient's age to complete this topic HPV VACCINE Aged Out No longer eligi ble based on patient's age to complete this topic MENINGOCOCCAL (Group B) VACC INE SHARED DECISION-MAKING Aged Out No longer eligibl e based on patient's age to complete this topic MENINGOCOCCAL GROUPS A/C/Y/W VACCINE Aged Out No longer eligible b ased on patient's age to complete this topic Insurance MEDICARE [facility]
--- OUTSIDE RECORDS SUMMARY | 2025-03-15 11:00 | XMS_ITS | Encounter Summary ---
Author Organization [facility] Address [address] [place] [address] Care Team Providers Care Independent Driver Name Role Phone Unavailable Primary Care Provider Unavailabl e Encounter Details Date Type Department Care Team (Late st Contact Info) Description 12/01/2021 Lab Requisition [facility] D[facility] Lab 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 Gender Identity Not on file Sexual Orientation Not on file documented as of this encounter Plan of Treatment Not on file documented as of this encounter Procedures Procedure Name Priority Date/Time Associated Diagnosis Comments DERMATOPATHOLOGY Routine 11/30/2021 3:33 AM CDT documented in this encounter Results * DERMATOPATHOLOGY (11/30/2021 3:33 AM CDT) Case Report Dermatopathology Report Case: [id number] Authorizing Provider: Josue Kinney MD Collected: 11/30/2021 03:33 AM Ordering Location: [facility] Lab Received: 12/01/2021 12:23 PM Pathologist: Carol Miller MD Specimen: Skin, left upper cut lip 2 3:28 PM CDT DERMATOPATHOLOGY LABORATORY Final Diagnosis Specimen A. 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 The specimen consists of a shave biopsy measuring [id number]. Jar 0. 2 3:28 PM CDT DERMATOPATHOLOGY LABORATORY Microscopic Description Specimen A. SKIN, left upper cut lip: The epidermis shows parakeratosis, full thickness disorderly maturation of keratinocytes, mitoses at different levels, and dyskeratotic cells. 2 3:28 PM CDT DERMATOPATHOLOGY LABORATORY Disclaimer An external and internal positive and negative controls are appropriate for the histochemical, immunohistochemical and immunofluorescence stain(s) in this case (if any), except where stated explicitly. The performance characteristics of the stain(s) cited in this report were developed and its performance characteristic determined by the Dermatopathology Laboratory at [facility], directed by Dr. Deepak Olivarez. These tests need not be, and therefore are not, approved by the [place] Food and Drug Administration. The tests are used for clinical purposes. Billing Codes Specimen Charges Stain Charges 94017 1 2 3:28 PM CDT DERMATOPATHOLOGY LABORATORY Embedded Images 2 3:28 PM CDT DERMATOPATHOLOGY LABORATORY Pathology/Cytolo gy TISSUE SPECIMEN FROM SKIN / Unknown 11/30/2021 3:33 AM CDT 12/01/2021 12:23 PM CDT Josue Kinney MD LAB - PATHOLOGY/CYTOLOGY ORD ERABLES Final Result DERMATOPATHOLOGY LABORATORY [facility] - Department of Dermatology [address], [address] [phone] documented in this encounter Visit Diagnoses Not on filedocumented in this encounter
[2025-03-15 11:02] VITALS: BP 116/81; PULSE 74; RESP 16; TEMP 36.2; O2SAT 97
[2025-03-15 11:37] LABS: EDSTREPNEGPOS1 Negative (Negative)
--- NOTE | 2025-03-15 11:43 | ED.URI ---
HPI - URI/Sore Throat General Chief Complaint: Upper Respiratory Infection Stated Complaint: Sore Throat/Cough Time Seen by Provider: 03/15/25 11:43 Source: patient Mode of arrival: ambulatory Limitations: no limitations History of Present Illness HPI Narrative: 85 yo F presents with c/o sore throat that has resolved, cough and chest congestion for 5 days. SOB with exertion. Afebrile. Taking OTC mucinex. All systems reviewed and negative except as noted above. Related Data Home Medications ?Medication ?Instructions ?Recorded ?Confirmed ?Last Taken ?Type tacrolimus 0.1 % topical ointment topical 09/04/24 03/10/25 Unknown History Allergies Allergy/AdvReac Type Severity Reaction Status Date / Time ceftriaxone Allergy Unknown HIVES/ITCHING/FLUSHED Verified 03/15/25 11:15 FEELING Cephalosporins Allergy Unknown HIVES/ITCHING/FLUSHED Verified 03/15/25 11:15 FEELING PMFSH Past Medical History Medical History (Updated 03/15/25 @ 11:48 by Jessica Sprague APRN) computer terminal operator (current) use of non-steroidal anti-inflammatories (nsaid) Aortic stenosis, moderate Atherosclerotic heart disease of [place] coronary artery with angina pectoris Diverticulosis Hyperlipidemia History of diverticulosis Hypercholesteremia Carotid atherosclerosis Essential (primary) hypertension (~02/11/24) Vitamin D deficiency Arthritis Surgical History Surgical History History of total right knee replacement (~12/06/22) History of dental surgery History of bilateral cataract extraction (~2017) History of removal of retained hardware (~2016) Implant removal due to infection History of partial knee replacement (~2015) H/O adenoidectomy (~195) H/O tubal ligation (~1974) History of bladder suspension procedure (~2003) History of carpal tunnel release Left 2007 Right 2010 Hx of joint replacement (~2011) Right Great Toe S/P meniscectomy (~2015) Medial Meniscectomy Status post trigger finger release (~2015) Left Middle History of arthroplasty of knee History of knee replacement (~2016) Left Family History Family History Mother Family history of cardiovascular disease, Onset Age: 73 Family history of malignant neoplasm Family history of arthritis Father Family history of cardiovascular disease, Onset Age: 80 Grandparent Family history of cardiovascular disease, Onset Age: 88 Family history of arthritis, Onset Age: 73 Family history of malignant neoplasm, Onset Age: 62 Sibling Family history of cardiovascular disease Social History Social History (Updated 03/10/25 @ 10:49 by Eleonora Miller MA) Social History: Surrogate medical decision maker: Haily Wilcox, daughter. Code status: Full code. Smoking packs per day: 1.5 Smoking cigarettes per day: 30.0 Years smoked: 10 Smoking pack-years: 15.00 Smoking status: Former smoker Second hand tobacco smoke exposure: No Smoking end date: 04/10/99 Alcohol intake: never Substance use: never Substance use type: does not use Lack of Transportation: No Lack of Food: Never True Current Housing: I Have Housing Concerned About Future Housing: No Difficulty Paying Gas/Electric Bills: No Difficulty Paying for Meds: No Currently Unemployed: No Education: High School Diploma/GED Difficulty w/ Childcare or Family Care: No Spiritual care concerns: No Comments At time of signature, agree with nursing past medical, surgical, social and family history. There is no relevant family history pertinent to the presenting complaint. Exam Narrative: GENERAL: This is a well-nourished, well-developed patient, in no apparent distress. HEAD: normocephalic, atraumatic. EYES: PERRL. Sclera clear/white. Vision is grossly intact. EARS: External ears normal, auditory canals clear and without drainage, TMs normal without perforation. Hearing grossly intact. NOSE: External nose normal with no obvious nasal discharge, nares without redness, no rhinorrhea. THROAT: Mucous membranes moist, posterior pharynx clear. NECK: Neck supple, non-tender without lymphadenopathy, masses or thyromegaly. CARDIOVASCULAR: Regular rate and rhythm without murmurs, gallops, or rubs. RESPIRATORY: Decreased throughout lung giron on expiration. Breath sounds equal bilaterally. No wheezes, rales, or rhonchi. SKIN: warm, Dry, intact with no suspicious lesions or rash, good texture and turgor. NEURO: awake, alert, and oriented to person, place and time. There were no obvious focal neurologic abnormalities. EXTREMITIES: No joint tenderness, effusion, or edema noted. Course Course Level of Care: Express Care Visit Vital Signs Vital signs: Vital Signs Temperature 36.2 C L 03/15/25 11:02 Pulse Rate 74 03/15/25 11:02 Respiratory Rate 16 03/15/25 11:02 Blood Pressure 116/81 03/15/25 11:02 Pulse Oximetry 97 03/15/25 11:02 Oxygen Delivery Room Air 03/15/25 11:02 Temperature 36.2 C L 03/15/25 11:02 Pulse Rate 74 03/15/25 11:02 Respiratory Rate 16 03/15/25 11:02 Blood Pressure 116/81 03/15/25 11:02 Pulse Oximetry 97 03/15/25 11:02 Oxygen Delivery Room Air 03/15/25 11:02 Reviewed MDM MDM Narrative Medical decision making narrative: will prescribe antibiotic today due to patient's age and comorbidities. Patient is alert, nontoxic. Chest x-ray was offered but patient did not feel was necessary. Differential Diagnosis Differential Diagnosis: Differential diagnostic considerations for upper respiratory infection include upper respiratory infection, croup, otitis media, sinusitis, viral infection, bronchitis, influenza, pharyngitis, strep, uvulitis.? Lab Data Labs: Lab Results 03/15/25 Range/Units 11:36 POC Grp A Strep Screen Negative (Negative) Discharge Plan Discharge Clinical Impression: Acute bronchitis Patient Disposition: Home Condition: Stable Instructions: Antibiotic Form, Acute Bronchitis (ED) Additional Instructions: take medications as prescribed. Continue taking [id number] Mucinex as directed on packaging. Drink plenty of water and rest. See your doctor if cough is not improving. Patient Language: American Prescriptions: New benzonatate 200 mg capsule 200 mg PO TID PRN (Reason: cough) Qty: 20 0RF doxycycline hyclate 100 mg capsule 100 mg PO BID 7 Days Qty: 14 0RF No Action tacrolimus 0.1 % ointment topical atorvastatin 40 mg tablet See Rx Instructions .ROUTE .COMPLEX Qty: 90 1RF Dose Instruction: TAKE 1 TABLET BY MOUTH EVERY DAY Rx Instructions: TAKE 1 TABLET BY MOUTH EVERY DAY lisinopril 10 mg tablet See Rx Instructions .ROUTE .COMPLEX Qty: 90 1RF Dose Instruction: TAKE 1 TABLET BY MOUTH EVERY DAY Rx Instructions: TAKE 1 TABLET BY MOUTH EVERY DAY dicyclomine 20 mg tablet 20 mg PO BID PRN (Reason: abdominal pain) Qty: 20 0RF amlodipine 2.5 mg tablet 2.5 mg PO DAILY Qty: 90 1RF aspirin 81 mg tablet,delayed release (DR/EC) 81 mg PO QAM Qty: 90 1RF meloxicam 15 mg tablet See Rx Instructions .ROUTE .COMPLEX Qty: 90 1RF Dose Instruction: TAKE 1 TABLET BY MOUTH DAILY Rx Instructions: TAKE 1 TABLET BY MOUTH DAILY metoprolol succinate 25 mg tablet extended release 24 hr 25 mg PO DAILY Qty: 90 1RF Follow-up/Referrals: Juan A Ralph MD [Primary Care Provider, [facility]] Time of Disposition: 11:50
== END 2025-03-15 11:55 | disposition home or self-care (01) ==
PROVIDERS: Emergency Provider Nurse Practitioner Family; PCP Family Medicine
DX: J20.9 Acute bronchitis, unspecified (principal); Z87.891 Personal history of nicotine dependence; I10 Essential (primary) hypertension; E78.00 Pure hypercholesterolemia, unspecified; I25.119 Atherosclerotic heart disease of native coronary artery with unspecified angina pectoris; I35.0 Nonrheumatic aortic (valve) stenosis; M19.90 Unspecified osteoarthritis, unspecified site; Z96.653 Presence of artificial knee joint, bilateral; Z98.42 Cataract extraction status, left eye; Z98.41 Cataract extraction status, right eye; Z96.698 Presence of other orthopedic joint implants
CPT/HCPCS: 87081; 87880; 99213; G0463